=== PATIENT | female | born 1965 | race Caucasian/White ===

== ENCOUNTER 2016-12-31 11:11 | Emergency (ER) | payer MEDICARE ==
--- NOTE | 2016-12-31 11:29 | ER Document Report ---
ED General - General Stated Complaint: RIGHT SIDE PAIN TRAVEL OUTSIDE OF THE [place] IN LAST 30 DAYS: No - Related Data Allergies/Adverse Reactions: No Known Allergies Allergy (Verified 12/08/15 11:32) Past Medical History - Social History Family History: None Endocrine Medical History: Reports: Hx Diabetes Mellitus Type 2 Psychiatric Medical History: Reports: Hx Anxiety, Hx Attention Deficit Hyperactivity Disorder, Hx Bipolar Disorder Past Surgical History: Reports: Hx Breast Surgery - benign lumpectomy, Hx Section - x3, Hx Hysterectomy - Immunizations Hx Diphtheria, Pertussis, Tetanus Vaccination: Yes Hx Pneumococcal Vaccination: 07/08/00
[2016-12-31 13:38] LABS: ALANINE AMINOTRANSFERASE 25 U/L (9-52); ALBUMIN 3.9 g/dL (3.5-5.0); ALKALINE PHOSPHATASE 78 U/L (38-126); ANION GAP 9 (5-19); ASPARTATE AMINO TRANSFERASE 14 U/L (14-36); BILIRUBIN,DIRECT 0.4 mg/dL (0.0-0.4); BILIRUBIN,TOTAL 0.4 mg/dL (0.2-1.3); BLOOD UREA NITROGEN 9 mg/dL (7-20); CALCIUM 9.2 mg/dL (8.4-10.2); CARBON DIOXIDE 22 mmol/L (22-30); CHLORIDE 111 mmol/L (98-107); CREATININE RESULT 0.74 mg/dL (0.52-1.25); GLUCOSE 110 mg/dL (75-110); POTASSIUM 4.6 mmol/L (3.6-5.0); SODIUM 142.2 mmol/L (137-145); TOTAL PROTEIN 7.6 g/dL (6.3-8.2)
--- NOTE | 2016-12-31 13:41 | RADIOLOGY REPORT (SQ) ---
EXAM DESCRIPTION: CERV SP 4 OR 5 VIEWS COMPLETED DATE/TIME: 12/31/2016 1:21 pm REASON FOR STUDY: numbness and pain to both hands COMPARISON: None. NUMBER OF VIEWS: Five views. TECHNIQUE: AP, lateral, obliques and odontoid radiographic images acquired of the cervical spine. LIMITATIONS: None. FINDINGS: MINERALIZATION: Normal. ALIGNMENT: There is very mild straightening of the normal cervical lordosis. VERTEBRAE: Vertebral bodies of normal height. DISCS: There is disc space narrowing at C6-C7 and C7-T1. FORAMINA: No osteophytes or foraminal narrowing. LATERAL AND POSTERIOR ELEMENTS: Facets, lateral masses and spinous processes without significant find ings. HARDWARE: None in the spine. SOFT TISSUES: No masses or calcifications. Lung apices clear. OTHER: No other significant finding. IMPRESSION: Mild degenerative changes in the lower cervical spine. No acute findings. TECHNICAL DOCUMENTATION: JOB ID: [id number] [employer]- All Rights Reserved
[2016-12-31] MEDS ORDERED: KETOROLAC TROMETHAMINE 60 MG/2 ML SDV IM ONE (14:06)
[2016-12-31] MEDS ORDERED: DEXAMETHASONE SOD PHOS INJ 10 MG/1 ML VIAL IM ONE (14:06)
--- NOTE | 2016-12-31 14:17 | ER Document Report ---
ED General - General Chief Complaint: Hand Pain Stated Complaint: RIGHT SIDE PAIN Time Seen by Provider: 12/31/16 11:51 Mode of Arrival: Ambulatory Information source: Patient Notes: 51-year-old female presents to ED for pain and numbness in both hands with the pain radiating up to the arm on the right side. Patient denies any injuries denies any other discomfort. She states it has been going on getting progressively worse for the last week. TRAVEL OUTSIDE OF THE [place] IN LAST 30 DAYS: No - HPI Onset: Last week Onset/Duration: Gradual, Worse Quality of pain: Burning, Sharp, Throbbing Severity: Moderate Pain Level: 4 Associated symptoms: None Exacerbated by: Movement Relieved by: Denies Similar symptoms previously: No Recently seen / treated by doctor: No - Related Data Allergies/Adverse Reactions: No Known Allergies Allergy (Verified 12/31/16 11:24) Past Medical History - General Information source: Patient - Social History Smoking Status: Current Every Day Smoker Cigarette use (# per day): Yes - ppd Chew tobacco use (# tins/day): No Smoking Education Provided: Yes - Less than 2 minutes Frequency of alcohol use: None Drug Abuse: None Lives with: Family Family History: Arthritis, CAD, COPD, CVA, DM, Hyperlipidemia, Hypertension, Malignancy Patient has suicidal ideation: No Patient has homicidal ideation: No - Past Medical History Cardiac Medical History: Reports: Hx Hypertension Pulmonary Medical History: Reports: None EENT Medical History: Reports: None Neurological Medical History: Reports: None Endocrine Medical History: Reports: Hx Diabetes Mellitus Type 2 - When overweight Renal/ Medical History: Reports: None Malignancy Medical History: Reports: None GI Medical History: Reports: None Musculoskeltal Medical History: Reports None Psychiatric Medical History: Reports: Hx Anxiety, Hx Attention Deficit Hyperactivity Disorder, Hx Bipolar Disorder Traumatic Medical History: Reports: Hx Traumatic Brain Injury Infectious Medical History: Reports: None Past Surgical History: Reports: Hx Breast Surgery - benign lumpectomy, Hx Section - x3, Hx Hysterectomy - Immunizations Hx Diphtheria, Pertussis, Tetanus Vaccination: Yes Hx Pneumococcal Vaccination: 07/08/00 Physical Exam - Vital signs Vitals: Temp Pulse Resp BP Pulse Ox 97.9 F 98 20 128/75 H 96 12/31/16 11:25 12/31/16 11:25 12/31/16 11:25 12/31/16 11:25 12/31/16 11:25 Interpretation: Normal - General General appearance: Appears well, Alert - HEENT Head: Normocephalic, Atraumatic Eyes: Normal Pupils: PERRL - Respiratory Respiratory status: No respiratory distress Chest status: Nontender Breath sounds: Normal Chest palpation: Normal - Cardiovascular Rhythm: Regular Heart sounds: Normal auscultation Murmur: No - Abdominal Inspection: Normal Distension: No distension Bowel sounds: Normal Tenderness: Nontender Organomegaly: No organomegaly - Back Back: Normal, Nontender - Extremities General upper extremity: Normal inspection, Normal color, Normal temperature General lower extremity: Normal inspection, Nontender, Normal color, Normal ROM , Normal temperature, Normal weight bearing. No: Annel's sign Wrist: No: Tender, Axial load of thumb pain, Deformity, Dislocation, Ecchymosis , Instability, Laceration, Limited ROM, Navicular tenderness Hand: Tender, No evidence of human bite, No evidence of FB. No: Abrasion, Deformity, Dislocation, Ecchymosis, Instability, Laceration, Nail injury, Swelling - Neurological Neuro grossly intact: Yes Cognition: Normal Orientation: AAOx4 Rogelio Coma Scale Eye Opening: Spontaneous Arbuckle Coma Scale Verbal: Oriented Rogelio Coma Scale Motor: Obeys Commands Arbuckle Coma Scale Total: 15 Speech: Normal Motor strength normal: LUE, RUE, LLE, RLE Sensory: Normal - Psychological Associated symptoms: Normal affect, Normal mood - Skin Skin Temperature: Warm Skin Moisture: Dry Skin Color: Normal Course - Re-evaluation Re-evalutation: 12/31/16 14:29 12/31/16 14:22 X-rays and labs discussed with Dr. Putnam patient will be discharged home after she received an injection of Toradol and Decadron for her pain to bilateral hands. She is to follow-up with her primary doctor concerning her degenerative disc disease in the lower cervical spine. - Vital Signs Vital signs: Temp Pulse Resp BP Pulse Ox 98 F 95 18 130/80 H 98 12/31/16 15:06 12/31/16 15:06 12/31/16 15:06 12/31/16 15:06 12/31/16 15:06 - Laboratory Result Diagrams: 12/31/16 12:45 Laboratory results interpreted by me: 12/31/16 12:45 Chloride 111 H - Diagnostic Test Radiology reviewed: Image reviewed, Reports reviewed Discharge - Discharge Clinical Impression: Bilateral hand pain, Degenerative disc disease, cervical Condition: Stable Disposition: HOME, SELF-CARE Instructions: Family Physicians / Practices Additional Instructions: You have been seen today for pain in both hands shooting up her arm on the right side. You have denied any injury to your hand or arm. Your x-ray of your neck showed you have some degenerative rating disc in your cervical spine which would cause pain and numbness in her hands. A written copy of your x-ray provided to you to follow-up I have given you some steroids and Toradol in your muscle to help with this discomfort. You will need to follow-up with her primary doctor so they can continue to evaluate what other treatment she will need for this pain. When you have degenerating disc in your neck sometimes they will cause inflammation to the nerves causing pain down the arms and hands. Toradol Injection You have been given an injection of ketorolac tromethamine (Toradol). This is an excellent, safe drug for pain control. It also has potent antiinflammatory action. You should have significant pain relief within about one hour. Toradol is not addicting and is non-sedating. It does not interfere with driving or work. Call or return if you develop itching, hives, shortness of breath, or rash. STEROID MEDICATION: You have been given an injection of medicine of the cortisone/steroid class. This medication is used to control inflammation or allergy. It is often continued as a pill for a short period of time, until the acute process subsides. There are usually no side effects from short-term use of cortisone-like medications. Some persons feel an increased sense of well-being and are not sleepy at bedtime. Long-term use of cortisone medications is best avoided, unless required for a severe condition. If your condition does not remit, or relapses after the course of corticosteroid medication, you should consult your physician. FOLLOW-UP CARE: If you have been referred to a physician for follow-up care, call the physician s office for an appointment as you were instructed or within the next two days. If you experience worsening or a significant change in your symptoms, notify the physician immediately or return to the Emergency Department at any time for re-evaluation. Forms: Elevated Blood Pressure, Smoking Cessation Education
[2016-12-31 15:09] VITALS: BP 130/80
== END 2016-12-31 15:06 | disposition home or self-care (01) ==
LOC: ER 11:11
DX: M79.641 Pain in right hand (principal); M79.642 Pain in left hand; M50.323 Other cervical disc degeneration at C6-C7 level; R20.0 Anesthesia of skin; E11.9 Type 2 diabetes mellitus without complications; I10 Essential (primary) hypertension; F17.210 Nicotine dependence, cigarettes, uncomplicated; Z71.6 Tobacco abuse counseling
CPT/HCPCS: 99283; 96372; 36415; 84703; 80053; 72050; J1885; J1100

== ENCOUNTER 2017-07-27 08:15 | Emergency (ER) | payer MEDICARE, MEDICAID ==
--- NOTE | 2017-07-27 09:54 | ER Document Report ---
ED General - General Chief Complaint: Other Stated Complaint: "I THINK I HAVE PARASITES" Time Seen by Provider: 07/27/17 09:06 Mode of Arrival: Ambulatory Information source: Patient Notes: Patient presents emergency department with complaints that she thinks she has parasites. Patient reports her hands have hurt her for over a year. Recently she noticed worms coming out of her hands. She also reports hair loss for the past month. Patient takes off her cap, several circular bald are noted. Pt reports she had surgery where these places are. Patient denies SI/hi but reports that a sore on the back of her neck has been talking to her and when she puts her finger up to it it actually sucks her finger. Patient also reports she has noticed worms coming out of her hands. Patient has a video on her phone of this. Patient reports she had a very large swollen soft spot on her hand that when she pushed on it the worm came out. She reports fever vomiting diarrhea. She denies rectal itching. Denies parasites in her stool. Patient reports history of ADHD bipolar. Reports she has been taking Xanax Ritalin and Topamax for the past year. Denies recreational drug use. TRAVEL OUTSIDE OF THE [place] 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 Lives with: Family Family History: Arthritis, CAD, COPD, CVA, DM, Hyperlipidemia, Hypertension, Malignancy - Past Medical History Cardiac Medical History: Reports: Hx Hypertension Endocrine Medical History: Reports: Hx Diabetes Mellitus Type 2 - When overweight Renal/ Medical History: Denies: Hx Peritoneal Dialysis Psychiatric Medical History: Reports: Hx Anxiety, Hx Attention Deficit Hyperactivity Disorder, Hx Bipolar Disorder Traumatic Medical History: Reports: Hx Traumatic Brain Injury Past Surgical History: Reports: Hx Breast Surgery - benign lumpectomy, Hx Section - x3, Hx Hysterectomy - Immunizations Hx Diphtheria, Pertussis, Tetanus Vaccination: Yes Hx Pneumococcal Vaccination: 07/08/00 Review of Systems - Review of Systems Notes: Review HPI for review of systems., All other systems negative Physical Exam - Vital signs Vitals: Temp Pulse Resp BP Pulse Ox 97.8 F 106 H 16 140/77 H 98 07/27/17 08:20 07/27/17 08:20 07/27/17 08:20 07/27/17 08:20 07/27/17 08:20 - Notes Notes: PHYSICAL EXAMINATION: GENERAL: Well-appearing and in no acute distress nontoxic, calm HEAD: Atraumatic, normocephalic. EYES: Pupils equal round, extraocular movements intact, sclera anicteric, conjunctiva are normal. ENT: nares patent, oropharynx clear without exudates. Moist mucous membranes. NECK: Normal range of motion, supple without lymphadenopathy LUNGS: CTAB and equal. No wheezes rales or rhonchi. HEART: Regular rate and rhythm without murmurs ABDOMEN: Soft, no tenderness. No guarding, no rebound EXTREMITIES: Normal range of motion, no pitting edema. No cyanosis. NEUROLOGICAL: Cranial nerves grossly intact. Normal sensory/motor exams. PSYCH: Normal mood, normal affect. SKIN: Warm, Dry, normal turgor, no rashes or lesions noted, no worms noted, several circular bald spots noted to top of head , Course - Re-evaluation Re-evalutation: 07/27/17 10:54 NIKKO, from [facility] in to see patient. Agrees with delusions, not dangerous to self or others. will check with dr peng for medication change 07/27/17 10:59 no medication change recommended at this time. I considered tinea capitis but patient reports she has had surgery where the bald spots on her head are. she reports the bald spots are not new. We discussed Selsum Blue shampoo. Also will give a consult to [employer] insurance account manager to make sure patient follows up. I'm concerned with treating her with oral antifungals until definitive dx. Pt will be instructed to fu with pcp and derm. In the meantime utilized selsum blue shampoo. - Vital Signs Vital signs: Temp Pulse Resp BP Pulse Ox 97.7 F 95 16 133/77 H 99 07/27/17 12:12 07/27/17 12:12 07/27/17 12:12 07/27/17 12:12 07/27/17 12:12 Discharge - Discharge Clinical Impression: Tinea capitis, Hallucinations Condition: Stable Disposition: HOME, SELF-CARE Instructions: Family Physicians / Practices Additional Instructions: *You have been treated for concerns of parasites, hair loss *Monitor your skin for signs of infection such as increasing pain, redness, swelling, warmth *Wash your hair with selsum blue *Follow up with a primary care provider within one week Follow-up with dermatology *Follow up with mental health on Saturday July 29, 2017 *Return to ED for signs of infection, worsening condition, changes, needs Monitor your blood pressure. Your blood pressure was elevated today. This may be because you were anxious, in pain or because you need medication. It is important to follow up with your primary care provider for full evaluation. Forms: Elevated Blood Pressure Referrals: MAYKEL MCCONNELL DO [ACTIVE STAFF] - Follow up in 1 week
[2017-07-27 12:14] VITALS: BP 133/77
== END 2017-07-27 12:13 | disposition home or self-care (01) ==
LOC: ER 08:15
DX: B35.0 Tinea barbae and tinea capitis (principal); R44.3 Hallucinations, unspecified; M79.641 Pain in right hand; M79.642 Pain in left hand; L65.9 Nonscarring hair loss, unspecified; M79.89 Other specified soft tissue disorders; F90.9 Attention-deficit hyperactivity disorder, unspecified type; F31.9 Bipolar disorder, unspecified; Z79.899 Other long term (current) drug therapy
CPT/HCPCS: 99285

== ENCOUNTER 2018-11-17 18:42 | Inpatient (IN) | payer MEDICARE, MEDICAID ==
[2018-11-17] MEDS ORDERED: NORMAL SALINE 1000 ML 1,000 ML IV ONE ×2 (18:55→19:15)
[2018-11-17 19:01] LABS: VENOUS BLOOD BASE EXCESS 5.4 mmol/L; VENOUS BLOOD PCO2 48.9 mmHg (35-63); VENOUS BLOOD PH 7.42 (7.30-7.42)
[2018-11-17 19:04] LABS: ABSOLUTE EOSINOPHILS # (AUTO) 0.1 10^3/uL (0.0-0.6); ABSOLUTE MONOCYTES (AUTO) 0.3 10^3/uL (0.1-1.4); BASOPHILS % (AUTO) 1.4 % (0-2); EOSINOPHILS % (AUTO) 1.6 % (0-6); HEMATOCRIT 37.6 % (36.0-47.0); HEMOGLOBIN 12.9 g/dL (12.0-15.5); LYMPHOCYTES % (AUTO) 28.8 % (13-45); MEAN CORPUSCULAR HEMOGLOBIN 30.4 pg (27.0-33.4); MEAN CORPUSCULAR HGB CONC 34.3 g/dL (32.0-36.0); MEAN CORPUSCULAR VOLUME 89 fl (80-97); MONOCYTES % (AUTO) 9.6 % (3-13); PLATELET COUNT 223 10^3/uL (150-450); RED BLOOD COUNT 4.25 10^6/uL (3.72-5.28); RED CELL DISTRIBUTION WIDTH 13.5 % (11.5-14.0); SEGMENTED NEUTROPHILS % (AUTO) 58.6 % (42-78); TOTAL CELLS COUNTED % (AUTO) 100 %; WHITE BLOOD COUNT 3.4 10^3/uL (4.0-10.5)
[2018-11-17 19:07] LABS: APPEARANCE,URINE CLEAR; BILIRUBIN,URINE NEGATIVE (NEGATIVE); COLOR,URINE COLORLESS; GLUCOSE, URINE >=500 mg/dL (NEGATIVE); KETONES,URINE NEGATIVE (NEGATIVE); LEUKOCYTE ESTERASE,URINE NEGATIVE (NEGATIVE); NITRITE,URINE NEGATIVE (NEGATIVE); PROTEIN,URINE NEGATIVE (NEGATIVE); URINE SPECIFIC GRAVITY 1.026; UROBILINOGEN,URINE NEGATIVE mg/dL (<2.0)
[2018-11-17 19:13] LABS: ALANINE AMINOTRANSFERASE 35 U/L (9-52); ALBUMIN 3.5 g/dL (3.5-5.0); ALKALINE PHOSPHATASE 165 U/L (38-126); ANION GAP 12 (5-19); ASPARTATE AMINO TRANSFERASE 20 U/L (14-36); BILIRUBIN,DIRECT 0.3 mg/dL (0.0-0.4); BILIRUBIN,TOTAL 0.3 mg/dL (0.2-1.3); BLOOD UREA NITROGEN 6 mg/dL (7-20); CALCIUM 9.2 mg/dL (8.4-10.2); CARBON DIOXIDE 25 mmol/L (22-30); CHLORIDE 88 mmol/L (98-107); SODIUM 125.1 mmol/L (137-145); TOTAL PROTEIN 6.5 g/dL (6.3-8.2)
--- NOTE | 2018-11-17 19:21 | ER Document Report ---
ED Blood Sugar Problem - General Chief Complaint: High Blood Sugar Stated Complaint: BLOOD SUGAR ISSUE Time Seen by Provider: 11/17/18 18:55 TRAVEL OUTSIDE OF THE [place] IN LAST 30 DAYS: No - HPI Notes: Patient is a 53-year-old female that presents to the emergency department for chief complaint of hyperglycemia, dizziness and not feeling well. Patient states she has a history of diabetes and used to take metformin a few years ago. She states that she has not seen a doctor and did not have money to fill her prescription so she stopped taking them. She states over the last week she has progressively felt more dizzy and nauseated. She reports one episode of emesis. She denies any cough, congestion, chest pain, shortness of breath, fever/chills, abdominal pain, diarrhea, numbness and weakness. She states she feels lightheaded and dizzy and has a yeast infection. She does report urinary frequency but denies dysuria. Past Medical History: Diabetes, hypertension Past Surgical History: Hysterectomy Social History: Daily tobacco. Denies drug and alcohol use Family History: Reviewed and noncontributory for presenting illness Allergies: Reviewed, see documented allergy list. REVIEW OF SYSTEMS: CONSTITUTIONAL : No fever No chills No diaphoresis No recent illness EENT: No vision changes No congestion No sore throat CARDIOVASCULAR: No chest pain No palpitations RESPIRATORY: No shortness of breath No cough No difficulty breathing GASTROINTESTINAL: No abdominal pain nausea vomiting No diarrhea GENITOURINARY: No dysuria No hematuria No difficulty urinating Vaginal yeast infection MUSCULOSKELETAL: No back pain No leg pain No arm pain SKIN: No rashes No lesions LYMPHATIC: No swollen, enlarged glands. NEUROLOGICAL: lightheadedness No headache No weakness No paresthesias PSYCHIATRIC: No anxiety No depression PHYSICAL EXAMINATION: Vital signs reviewed, nursing noted reviewed. GENERAL: Ill-appearing, well-nourished and in no acute distress. HEAD: Atraumatic, normocephalic. EYES: Eyes appear normal, extraocular movements intact, sclera anicteric, conjunctiva are normal. ENT: nares patent, oropharynx clear without exudates. Dry mucous membranes. NECK: Normal range of motion, supple without lymphadenopathy LUNGS: Tachypneic without retractions or accessory muscle use. Breath sounds clear to auscultation bilaterally and equal. No wheezes rales or rhonchi. HEART: Regular rate and regular rhythm without murmurs ABDOMEN: Soft, nontender, normoactive bowel sounds. No rebound, guarding, or rigidity. No masses appreciated. EXTREMITIES: Nontender, good range of motion, no pitting or edema. NEUROLOGICAL: No focal neurological deficits. Moves all extremities spontaneously Motor and sensory grossly intact on exam. PSYCH: Normal mood, normal affect. SKIN: Warm, Dry, normal turgor, no rashes or lesions noted on exposed skin - Related Data Allergies/Adverse Reactions: No Known Allergies Allergy (Verified 05/12/17 14:52) Past Medical History - Social History Smoking Status: Unknown if Ever Smoked Family History: Arthritis, CAD, COPD, CVA, DM, Hyperlipidemia, Hypertension, Malignancy Patient has suicidal ideation: No Patient has homicidal ideation: No - Past Medical History Cardiac Medical History: Reports: Hx Hypertension Endocrine Medical History: Reports: Hx Diabetes Mellitus Type 2 - When overweight Renal/ Medical History: Denies: Hx Peritoneal Dialysis Psychiatric Medical History: Reports: Hx Anxiety, Hx Attention Deficit Hyperactivity Disorder, Hx Bipolar Disorder Traumatic Medical History: Reports: Hx Traumatic Brain Injury Past Surgical History: Reports: Hx Breast Surgery - benign lumpectomy, Hx Section - x3, Hx Hysterectomy - Immunizations Hx Diphtheria, Pertussis, Tetanus Vaccination: Yes Hx Pneumococcal Vaccination: 07/08/00 Physical Exam - Vital signs Vitals: Resp Pulse Ox 29 H 100 11/17/18 18:47 11/17/18 18:47 Course - Re-evaluation Re-evalutation: 11/17/18 19:20 Vitals reviewed. Nursing notes reviewed. Patient has very dry mucous membranes and [id number] glucose was reading "high". Patient received 500 mL's normal saline by EMS prior to arrival. Patient ordered 2 L normal saline fluid bolus. 11/17/18 21:15 Patient's lab work showed initial high blood sugar of 795. After 2500 mL normal saline her glucose decreased to 469. She has no acidosis and is not in DKA. Patient's hyperglycemia is concerning for HHNK. She does have pseudohyponatremia because of her hyperglycemia. The remainder of her blood work is unremarkable. There is no urinary tract infection. CT brain is unr emarkable. Urine tox and alcohol levels are negative. Patient is improving with IV fluids. I discussed her care with Dr. Turpin who would like serum osmoles resulted prior to excepting admission. Currently awaiting the results of this test. Laboratory 11/17/18 11/17/18 11/17/18 18:47 18:47 18:47 WBC 3.4 L RBC 4.25 Hgb 12.9 Hct 37.6 MCV 89 MCH 30.4 MCHC 34.3 RDW 13.5 Plt Count 223 Seg Neutrophils % 58.6 Lymphocytes % 28.8 Monocytes % 9.6 Eosinophils % 1.6 Basophils % 1.4 Absolute Neutrophils 2.0 Absolute Lymphocytes 1.0 Absolute Monocytes 0.3 Absolute Eosinophils 0.1 Absolute Basophils 0.0 VBG pH VBG pCO2 VBG HCO3 VBG Base Excess Sodium 125.1 L Potassium 4.0 Chloride 88 L Carbon Dioxide 25 Anion Gap 12 BUN 6 L Creatinine 0.47 L Est GFR ( Amer) > 60 Est GFR (Non-Af Amer) > 60 Glucose 795 H* POC Glucose Calcium 9.2 Total Bilirubin 0.3 Direct Bilirubin 0.3 Neonat Total Bilirubin Not Reportable Neonat Direct Bilirubin Not Reportable Neonat Indirect Bili Not Reportable AST 20 ALT 35 Alkaline Phosphatase 165 H Ammonia Troponin I Total Protein 6.5 Albumin 3.5 Lipase Urine Color COLORLESS Urine Appearance CLEAR Urine pH 7.0 Ur Specific [place] 1.026 Urine Protein NEGATIVE Urine Glucose (UA) >=500 H Urine Ketones NEGATIVE Urine Blood NEGATIVE Urine Nitrite NEGATIVE Urine Bilirubin NEGATIVE Urine Urobilinogen NEGATIVE Ur Leukocyte Esterase NEGATIVE Urine WBC (Auto) 0 Urine RBC (Auto) 1 U Hyaline Cast (Auto) Urine Bacteria (Auto) Urine Red Cell Clumps Urine WBC Clumps Squamous Epi Cells Auto U Non-Squamous Epis Auto Calcium Carbonate Cryst Calcium Phosphate Cryst Calcium Oxalate Cr Auto Leucine Crystals Cystine Crystals Uric Acid Cryst (Auto) Triple Phos Cryst (Auto) Tyrosine Crystals Amorphous Sediment Auto Cellular Casts Epithelial Casts (Auto) Fatty Casts Granular Casts (Auto) Waxy Casts (Auto) Broad Casts RBC Casts (Auto) WBC Casts (Auto) Urine Mucus (Auto) U Trichomonas (Auto) Ur Yeast w Hyphae Urine Yeast (Budding) Urine Ascorbic Acid NEGATIVE Urine HCG, Qual Urine Opiates Screen Urine Methadone Screen Ur Barbiturates Screen Ur Phencyclidine Scrn Ur Amphetamines Screen U Benzodiazepines Scrn Urine Cocaine Screen U Marijuana (THC) Screen Serum Alcohol 05/13/19 05/13/19 05/13/19 18:47 18:47 18:47 WBC RBC Hgb Hct MCV MCH MCHC RDW Plt Count Seg Neutrophils % Lymphocytes % Monocytes % Eosinophils % Basophils % Absolute Neutrophils Absolute Lymphocytes Absolute Monocytes Absolute Eosinophils Absolute Basophils VBG pH 7.42 VBG pCO2 48.9 VBG HCO3 31.0 VBG Base Excess 5.4 Sodium Potassium Chloride Carbon Dioxide Anion Gap BUN Creatinine Est GFR ( Amer) Est GFR (Non-Af Amer) Glucose POC Glucose Calcium Total Bilirubin Direct Bilirubin Neonat Total Bilirubin Neonat Direct Bilirubin Neonat Indirect Bili AST ALT Alkaline Phosphatase Ammonia Troponin I < 0.012 Total Protein Albumin Lipase Urine Color Cancelled Urine Appearance Cancelled Urine pH Cancelled Ur Specific [place] Cancelled Urine Protein Cancelled Urine Glucose (UA) Cancelled Urine Ketones Cancelled Urine Blood Cancelled Urine Nitrite Cancelled Urine Bilirubin Cancelled Urine Urobilinogen Cancelled Ur Leukocyte Esterase Cancelled Urine WBC (Auto) Cancelled Urine RBC (Auto) Cancelled U Hyaline Cast (Auto) Cancelled Urine Bacteria (Auto) Cancelled Urine Red Cell Clumps Cancelled Urine WBC Clumps Cancelled Squamous Epi Cells Auto Cancelled U Non-Squamous Epis Auto Cancelled Calcium Carbonate Cryst Cancelled Calcium Phosphate Cryst Cancelled Calcium Oxalate Cr Auto Cancelled Leucine Crystals Cancelled Cystine Crystals Cancelled Uric Acid Cryst (Auto) Cancelled Triple Phos Cryst (Auto) Cancelled Tyrosine Crystals Cancelled Amorphous Sediment Auto Cancelled Cellular Casts Cancelled Epithelial Casts (Auto) Cancelled Fatty Casts Cancelled Granular Casts (Auto) Cancelled Waxy Casts (Auto) Cancelled Broad Casts Cancelled RBC Casts (Auto) Cancelled WBC Casts (Auto) Cancelled Urine Mucus (Auto) Cancelled U Trichomonas (Auto) Cancelled Ur Yeast w Hyphae Cancelled Urine Yeast (Budding) Cancelled Urine Ascorbic Acid Cancelled Urine HCG, Qual NEGATIVE Urine Opiates Screen Urine Methadone Screen Ur Barbiturates Screen Ur Phencyclidine Scrn Ur Amphetamines Screen U Benzodiazepines Scrn Urine Cocaine Screen U Marijuana (THC) Screen Serum Alcohol 11/17/18 11/17/18 11/17/18 18:47 18:47 19:35 WBC RBC Hgb Hct MCV MCH MCHC RDW Plt Count Seg Neutrophils % Lymphocytes % Monocytes % Eosinophils % Basophils % Absolute Neutrophils Absolute Lymphocytes Absolute Monocytes Absolute Eosinophils Absolute Basophils VBG pH VBG pCO2 VBG HCO3 VBG Base Excess Sodium Potassium Chloride Carbon Dioxide Anion Gap BUN Creatinine Est GFR ( Amer) Est GFR (Non-Af Amer) Glucose POC Glucose Calcium Total Bilirubin Direct Bilirubin Neonat Total Bilirubin Neonat Direct Bilirubin Neonat Indirect Bili AST ALT Alkaline Phosphatase Ammonia < 8.7 L Troponin I Total Protein Albumin Lipase 188.0 Urine Color Urine Appearance Urine pH Ur Specific [place] Urine Protein Urine Glucose (UA) Urine Ketones Urine Blood Urine Nitrite Urine Bilirubin Urine Urobilinogen Ur Leukocyte Esterase Urine WBC (Auto) Urine RBC (Auto) U Hyaline Cast (Auto) Urine Bacteria (Auto) Urine Red Cell Clumps Urine WBC Clumps Squamous Epi Cells Auto U Non-Squamous Epis Auto Calcium Carbonate Cryst Calcium Phosphate Cryst Calcium Oxalate Cr Auto Leucine Crystals Cystine Crystals Uric Acid Cryst (Auto) Triple Phos Cryst (Auto) Tyrosine Crystals Amorphous Sediment Auto Cellular Casts Epithelial Casts (Auto) Fatty Casts Granular Casts (Auto) Waxy Casts (Auto) Broad Casts RBC Casts (Auto) WBC Casts (Auto) Urine Mucus (Auto) U Trichomonas (Auto) Ur Yeast w Hyphae Urine Yeast (Budding) Urine Ascorbic Acid Urine HCG, Qual Urine Opiates Screen NEGATIVE Urine Methadone Screen NEGATIVE Ur Barbiturates Screen NEGATIVE Ur Phencyclidine Scrn NEGATIVE Ur Amphetamines Screen NEGATIVE U Benzodiazepines Scrn NEGATIVE Urine Cocaine Screen NEGATIVE U Marijuana (THC) Screen NEGATIVE Serum Alcohol < 10 11/17/18 20:58 WBC RBC Hgb Hct MCV MCH MCHC RDW Plt Count Seg Neutrophils % Lymphocytes % Monocytes % Eosinophils % Basophils % Absolute Neutrophils Absolute Lymphocytes Absolute Monocytes Absolute Eosinophils Absolute Basophils VBG pH VBG pCO2 VBG HCO3 VBG Base Excess Sodium Potassium Chloride Carbon Dioxide Anion Gap BUN Creatinine Est GFR ( Amer) Est GFR (Non-Af Amer) Glucose POC Glucose 469 H* Calcium Total Bilirubin Direct Bilirubin Neonat Total Bilirubin Neonat Direct Bilirubin Neonat Indirect Bili AST ALT Alkaline Phosphatase Ammonia Troponin I Total Protein Albumin Lipase Urine Color Urine Appearance Urine pH Ur Specific [place] Urine Protein Urine Glucose (UA) Urine Ketones Urine Blood Urine Nitrite Urine Bilirubin Urine Urobilinogen Ur Leukocyte Esterase Urine WBC (Auto) Urine RBC (Auto) U Hyaline Cast (Auto) Urine Bacteria (Auto) Urine Red Cell Clumps Urine WBC Clumps Squamous Epi Cells Auto U Non-Squamous Epis Auto Calcium Carbonate Cryst Calcium Phosphate Cryst Calcium Oxalate Cr Auto Leucine Crystals Cystine Crystals Uric Acid Cryst (Auto) Triple Phos Cryst (Auto) Tyrosine Crystals Amorphous Sediment Auto Cellular Casts Epithelial Casts (Auto) Fatty Casts Granular Casts (Auto) Waxy Casts (Auto) Broad Casts RBC Casts (Auto) WBC Casts (Auto) Urine Mucus (Auto) U Trichomonas (Auto) Ur Yeast w Hyphae Urine Yeast (Budding) Urine Ascorbic Acid Urine HCG, Qual Urine Opiates Screen Urine Methadone Screen Ur Barbiturates Screen Ur Phencyclidine Scrn Ur Amphetamines Screen U Benzodiazepines Scrn Urine Cocaine Screen U Marijuana (THC) Screen Serum Alcohol 11/17/18 21:55 Patient serum osmole's are elevated. Patient admitted to telemetry for further monitoring. Dr. Turpin accepts admission. - Vital Signs Vital signs: Temp Pulse Resp BP Pulse Ox 98.6 F 13 133/87 H 100 11/17/18 19:01 11/17/18 21:01 11/17/18 21:01 11/17/18 21:01 - Laboratory Result Diagrams: 11/17/18 18:47 11/17/18 18:47 Laboratory results interpreted by me: 11/17/18 11/17/18 11/17/18 18:47 18:47 18:47 WBC 3.4 L Sodium 125.1 L Chloride 88 L BUN 6 L Creatinine 0.47 L Glucose 795 H* POC Glucose Serum Osmolality Alkaline Phosphatase 165 H Ammonia Urine Glucose (UA) >=500 H 11/17/18 11/17/18 11/17/18 18:47 19:35 20:58 WBC Sodium Chloride BUN Creatinine Glucose POC Glucose 469 H* Serum Osmolality 303 H Alkaline Phosphatase Ammonia < 8.7 L Urine Glucose (UA) Discharge - Discharge Clinical Impression: HHNC (hyperglycemic hyperosmolar nonketotic coma) Condition: Stable Disposition: ADMITTED INPATIENT Admitting Provider: Papi (Hospitalist) Unit Admitted: Telemetry
[2018-11-17 19:28] LABS: GLUCOSE 795 mg/dL (75-110)
--- NOTE | 2018-11-17 19:41 | RADIOLOGY REPORT (SQ) ---
EXAM DESCRIPTION: CT HEAD WITHOUT COMPLETED DATE/TIME: 11/17/2018 7:31 pm REASON FOR STUDY: dizziness COMPARISON: 03/06/2012. TECHNIQUE: Axial images acquired through the brain without intravenous contrast. Images reviewed wi th bone, brain and subdural windows. Additional sagittal and coronal reconstructions were generated. Images stored on PACS. All CT scanners at this facility use dose modulation, iterative reconstruction, and/or weight based d osing when appropriate to reduce radiation dose to as low as reasonably achievable (ALARA). [facility]: Dose Right [facility]: CareDose [facility]: Dose Right [facility]: Teradose 4D [facility]: [employer] RADIATION DOSE: CT Rad equipment meets quality standard of care and radiation dose reduction techniq ues were employed. CTDIvol: 53.2 mGy. DLP: 964 mGy-cm. mGy. LIMITATIONS: None. FINDINGS: VENTRICLES: Normal size and contour. CEREBRUM: No masses. No hemorrhage. No midline shift. No evidence for acute infarction. Normal gra y/white matter differentiation. No areas of low density in the white matter. CEREBELLUM: No masses. No hemorrhage. No alteration of density. No evidence for acute infarction. EXTRAAXIAL SPACES: Stable mild asymmetric fluid collection along the right side of the hazel. ORBITS AND GLOBE: No intra- or extraconal masses. Normal contour of globe without masses. CALVARIUM: No fracture. PARANASAL SINUSES: No fluid or mucosal thickening. SOFT TISSUES: No mass or hematoma. OTHER: No other significant finding. IMPRESSION: NORMAL BRAIN CT WITHOUT CONTRAST. EVIDENCE OF ACUTE STROKE: NO. COMMENT: Quality ID # [id number]: Final reports with documentation of one or more dose reduction techniques (e.g., Automated exposure control, adjustment of the mA and/or kV according to patient size, use of iterative reconstruction technique) TECHNICAL DOCUMENTATION: JOB ID: [id number] [facility]- All Rights Reserved Reading location - IP/workstation name: [email or web address]
--- NOTE | 2018-11-17 19:42 | RADIOLOGY REPORT (SQ) ---
EXAM DESCRIPTION: CHEST SINGLE VIEW COMPLETED DATE/TIME: 11/17/2018 7:09 pm REASON FOR STUDY: hyperglycemia COMPARISON: 11/04/2012. EXAM PARAMETERS: NUMBER OF VIEWS: One view. TECHNIQUE: Single frontal radiographic view of the chest acquired. RADIATION DOSE: NA LIMITATIONS: None. FINDINGS: LUNGS AND PLEURA: No opacities, masses or pneumothorax. No pleural effusion. MEDIASTINUM AND HILAR STRUCTURES: No masses. Contour normal. HEART AND VASCULAR STRUCTURES: Heart normal in size. Normal vasculature. BONES: No acute findings. HARDWARE: None in the chest. OTHER: No other significant finding. IMPRESSION: NO ACUTE RADIOGRAPHIC FINDING IN THE CHEST. TECHNICAL DOCUMENTATION: JOB ID: [id number] [employer]- All Rights Reserved Reading location - IP/workstation name: [email or web address]
[2018-11-17 19:47] LABS: ALCOHOL < 10 mg/dL (NONE DETECTED)
[2018-11-17 20:08] LABS: URINE BENZODIAZEPINES SCREEN NEGATIVE; URINE COCAINE SCREEN NEGATIVE
[2018-11-17 20:09] LABS: URINE AMPHETAMINES SCREEN NEGATIVE; URINE BARBITURATES SCREEN NEGATIVE; URINE MARIJUANA (THC) SCREEN NEGATIVE; URINE METHADONE SCREEN NEGATIVE; URINE PHENCYCLIDINE SCREEN NEGATIVE
[2018-11-17] MEDS ORDERED: NORMAL SALINE 1000 ML 1,000 ML IV PRN (21:06)
[2018-11-17] MEDS ORDERED: DEXTROSE 40% GEL 15 GM TUBE PO PRN ×2 (21:32)
[2018-11-17] MEDS ORDERED: MAG HYDROX/AL HYDROX/SIMETH SUSP 30 ML UDCUP PO PRN (21:32)
[2018-11-17] MEDS ORDERED: ACETAMINOPHEN 325 MG TABLET PO PRN (21:32)
[2018-11-17] MEDS ORDERED: GLUCAGON,HUMAN RECOMB 1 MG INJ IM PRN (21:32)
[2018-11-17] MEDS ORDERED: DEXTROSE 50%-WATER 25 GM/50 ML DISP.SYRIN IV PRN ×2 (21:32)
[2018-11-17] MEDS ORDERED: IPRATROPIUM/ALBUTEROL 0.5-2.5 MG/3 ML AMPUL NEB PRN (21:32)
[2018-11-17] MEDS ORDERED: 1/2 NORMAL SALINE 1,000 ML with POTASSIUM CHLORIDE 40 MEQ IV SCH ×2 (21:45)
[2018-11-17] MEDS ORDERED: INSULIN GLARGINE,HUM.REC.ANLOG 1,000 UNIT/10 ML VIAL SUBCUT SCH (22:00)
[2018-11-17] MEDS: HEPARIN SOD (PORCINE) 5,000 UNIT/ML 1 ML SYRINGE SUBCUT SCH (22:54)
[2018-11-17] MEDS: INSULIN LISPRO 100 UNIT/ML 3 ML VIAL SUBCUT SCH (22:55)
[2018-11-18 00:31] LABS: ANION GAP 8 (5-19); BLOOD UREA NITROGEN 4 mg/dL (7-20); CALCIUM 8.2 mg/dL (8.4-10.2); CARBON DIOXIDE 24 mmol/L (22-30); CHLORIDE 101 mmol/L (98-107); GLUCOSE 351 mg/dL (75-110); POTASSIUM 3.1 mmol/L (3.6-5.0); SODIUM 133.3 mmol/L (137-145)
[2018-11-18] MEDS: INSULIN LISPRO 100 UNIT/ML 3 ML VIAL SUBCUT SCH ×4 (01:14→17:40)
[2018-11-18] MEDS: NICOTINE 14 MG/24 HR PATCH.TD24 TD SCH ×2 (01:52→09:57)
--- NOTE | 2018-11-18 04:00 | PDOC H&P ---
History of Present Illness Admission Date/PCP: 11/17/18 21:51 Patient complains of: Hyperglycemia History of Present Illness: DEVYN OBANDO is a 53 year old female with a history of hypertension, diabetes, anxiety and tobacco dependence. Patient presents with polyuria polydipsia fatigue and hyperglycemia. Blood sugars found to be in the 700s. She started on IV fluids and referred to the hospitalist for hyperosmolar nonketotic state. Patient denies headache, blurred vision, nausea vomiting, chemistry is negative for acidosis but positive for hyperosmolar state. Patient admits medication noncompliance for years secondary to financial barriers however admits to a 4 pack/day smoking habit. Past Medical History Cardiac Medical History: Reports: Hypertension Pulmonary Medical History: Reports: Chronic Obstructive Pulmonary Disease (COPD) Endocrine Medical History: Reports: Diabetes Mellitus Type 2 - When overweight Psychiatric Medical History: Reports: Attention Deficit Hyperactivity Disorder, Bipolar Disorder, Tobacco Dependency Traumatic Medical History: Reports: Traumatic Brain Injury Past Surgical History Past Surgical History: Reports: Section - x3, Hysterectomy Social History Information Source: Patient Smoking Status: Current Every Day Smoker Frequency of Alcohol Use: None Drugs: None - Advance Directive Resuscitation Status: Full Code Family History Family History: Arthritis, CAD, COPD, CVA, DM, Hyperlipidemia, Hypertension, Malignancy Parental Family History Reviewed: Yes Children Family History Reviewed: Yes Sibling(s) Family History Reviewed.: Yes Medication/Allergy Home Medications: Alprazolam [Xanax Xr] 2 mg PO BID PRN 07/09/15 Amitriptyline HCl [Elavil 100 mg Tablet] 100 mg PO QHS 07/09/15 Bupropion HCl [Wellbutrin Sr 100 mg Tablet] 1 tab PO Q12 07/09/15 Buspirone HCl [Buspar 10 mg Tablet] 10 mg PO BID 07/09/15 Ciprofloxacin HCl [Cipro 500 mg Tablet] 500 mg PO BID #10 tablet 07/09/15 Topiramate [Topamax 100 Mg Tablet] 200 mg PO BID 07/09/15 Vortioxetine Hydrobromide [Brintellix] 20 mg PO DAILY 07/09/15 Gabapentin 100 mg PO TID #30 capsule 12/08/15 Oxycodone HCl/Acetaminophen [Percocet 5-325 mg Tablet] 1 - 2 tab PO Q4H PRN #15 tablet 12/08/15 Allergies/Adverse Reactions: No Known Allergies Allergy (Verified 05/12/17 14:52) Review of Systems ROS unobtainable: Due to mental status - Confused Physical Exam Vital Signs: Temp Pulse Resp BP Pulse Ox 98.3 F 89 17 131/99 H 95 11/18/18 01:00 11/18/18 01:00 11/18/18 01:00 11/18/18 01:00 11/18/18 01:00 Intake & Output 11/16/18 11/17/18 11/18/18 11:59 11:59 11:59 Intake Total 3000 Output Total 1650 Balance 1350 Weight 75 kg General appearance: PRESENT: cooperative, disheveled, mild distress, well- developed, well-nourished Head exam: PRESENT: atraumatic, normocephalic Eye exam: PRESENT: conjunctiva pink, EOMI, PERRLA. ABSENT: scleral icterus Ear exam: PRESENT: normal external ear exam Mouth exam: PRESENT: dry mucosa, neck supple. ABSENT: laceration, moist Neck exam: ABSENT: carotid bruit, JVD, lymphadenopathy, thyromegaly Respiratory exam: PRESENT: clear to auscultation catrachita, tachypnea. ABSENT: rales, rhonchi, wheezes Cardiovascular exam: PRESENT: RRR, tachycardia. ABSENT: diastolic murmur, rubs, systolic murmur Pulses: PRESENT: normal dorsalis pedis pul Vascular exam: PRESENT: normal capillary refill GI/Abdominal exam: PRESENT: normal bowel sounds, soft. ABSENT: distended, guarding, mass, organolmegaly, rebound, tenderness Rectal exam: PRESENT: deferred Extremities exam: PRESENT: full ROM. ABSENT: calf tenderness, clubbing, pedal edema Neurological exam: PRESENT: alert, altered, awake, oriented to person, oriented to place, CN II-XII grossly intact Psychiatric exam: PRESENT: normal mood, unusual affect. ABSENT: homicidal ideation, suicidal ideation Skin exam: PRESENT: dry, intact, warm. ABSENT: cyanosis, rash Results Laboratory Results: 11/17/18 18:47 11/17/18 23:04 11/17/18 11/17/18 11/17/18 18:47 18:47 18:47 WBC 3.4 L RBC 4.25 Hgb 12.9 Hct 37.6 MCV 89 MCH 30.4 MCHC 34.3 RDW 13.5 Plt Count 223 Seg Neutrophils % 58.6 Lymphocytes % 28.8 Monocytes % 9.6 Eosinophils % 1.6 Basophils % 1.4 Absolute Neutrophils 2.0 Absolute Lymphocytes 1.0 Absolute Monocytes 0.3 Absolute Eosinophils 0.1 Absolute Basophils 0.0 VBG pH VBG pCO2 VBG HCO3 VBG Base Excess Sodium 125.1 L Potassium 4.0 Chloride 88 L Carbon Dioxide 25 Anion Gap 12 BUN 6 L Creatinine 0.47 L Est GFR ( Amer) > 60 Est GFR (Non-Af Amer) > 60 Glucose 795 H* Serum Osmolality Calcium 9.2 Magnesium Total Bilirubin 0.3 AST 20 ALT 35 Alkaline Phosphatase 165 H Ammonia Total Protein 6.5 Albumin 3.5 Lipase Urine Color COLORLESS Urine Appearance CLEAR Urine pH 7.0 Ur Specific Normal 1.026 Urine Protein NEGATIVE Urine Glucose (UA) >=500 H Urine Ketones NEGATIVE Urine Blood NEGATIVE Urine Nitrite NEGATIVE Ur Leukocyte Esterase NEGATIVE Urine WBC (Auto) 0 Urine RBC (Auto) 1 11/17/18 11/17/18 11/17/18 18:47 18:47 18:47 WBC RBC Hgb Hct MCV MCH MCHC RDW Plt Count Seg Neutrophils % Lymphocytes % Monocytes % Eosinophils % Basophils % Absolute Neutrophils Absolute Lymphocytes Absolute Monocytes Absolute Eosinophils Absolute Basophils VBG pH 7.42 VBG pCO2 48.9 VBG HCO3 31.0 VBG Base Excess 5.4 Sodium Potassium Chloride Carbon Dioxide Anion Gap BUN Creatinine Est GFR ( Amer) Est GFR (Non-Af Amer) Glucose Serum Osmolality Calcium Magnesium Total Bilirubin AST ALT Alkaline Phosphatase Ammonia Total Protein Albumin Lipase 188.0 Urine Color Cancelled Urine Appearance Cancelled Urine pH Cancelled Ur Specific Normal Cancelled Urine Protein Cancelled Urine Glucose (UA) Cancelled Urine Ketones Cancelled Urine Blood Cancelled Urine Nitrite Cancelled Ur Leukocyte Esterase Cancelled Urine WBC (Auto) Cancelled Urine RBC (Auto) Cancelled 11/17/18 11/17/18 11/17/18 18:47 18:47 18:47 WBC RBC Hgb Hct MCV MCH MCHC RDW Plt Count Seg Neutrophils % Lymphocytes % Monocytes % Eosinophils % Basophils % Absolute Neutrophils Absolute Lymphocytes Absolute Monocytes Absolute Eosinophils Absolute Basophils VBG pH VBG pCO2 VBG HCO3 VBG Base Excess Sodium Potassium Chloride Carbon Dioxide Anion Gap BUN Creatinine Est GFR ( Amer) Est GFR (Non-Af Amer) Glucose Serum Osmolality Cancelled 303 H Calcium Magnesium 1.5 L Total Bilirubin AST ALT Alkaline Phosphatase Ammonia Total Protein Albumin Lipase Urine Color Urine Appearance Urine pH Ur Specific Normal Urine Protein Urine Glucose (UA) Urine Ketones Urine Blood Urine Nitrite Ur Leukocyte Esterase Urine WBC (Auto) Urine RBC (Auto) 11/17/18 11/17/18 11/17/18 19:35 23:04 23:04 WBC RBC Hgb Hct MCV MCH MCHC RDW Plt Count Seg Neutrophils % Lymphocytes % Monocytes % Eosinophils % Basophils % Absolute Neutrophils Absolute Lymphocytes Absolute Monocytes Absolute Eosinophils Absolute Basophils VBG pH VBG pCO2 VBG HCO3 VBG Base Excess Sodium 133.3 L Potassium 3.1 L Chloride 101 Carbon Dioxide 24 Anion Gap 8 BUN 4 L Creatinine 0.40 L Est GFR ( Amer) > 60 Est GFR (Non-Af Amer) > 60 Glucose 351 H Serum Osmolality 292 Calcium 8.2 L Magnesium Total Bilirubin AST ALT Alkaline Phosphatase Ammonia < 8.7 L Total Protein Albumin Lipase Urine Color Urine Appearance Urine pH Ur Specific Normal Urine Protein Urine Glucose (UA) Urine Ketones Urine Blood Urine Nitrite Ur Leukocyte Esterase Urine WBC (Auto) Urine RBC (Auto) 11/17/18 18:47 Troponin I < 0.012 Impressions: Chest X-Ray 11/17/18 18:56 IMPRESSION: NO ACUTE RADIOGRAPHIC FINDING IN THE CHEST. Head CT 11/17/18 19:17 IMPRESSION: NORMAL BRAIN CT WITHOUT CONTRAST. EVIDENCE OF ACUTE STROKE: NO. Assessment and Plan - Diagnosis (1) HHNC (hyperglycemic hyperosmolar nonketotic coma) Is this a current diagnosis for this admission?: Yes Plan: uncontrolled hyperglycemia with hyperosmolar supporting labs. Patient will receive IV fluids IV insulin serial chemistries every 6 hours for evaluation for electrolyte repletion. Secondary to noncompliance patient will require diabetic education and consideration of mental health evaluation. (2) Diabetes Is this a current diagnosis for this admission?: Yes Plan: patient has had some degree of polyuria polydipsia with nausea and uncontrolled hyperglycemia with supporting labs. Patient will receive IV fluids IV insulin serial chemistries every 12 hours for evaluation for electrolyte repletion. diabetic education and consideration of mental health evaluation. (3) Tobacco abuse Is this a current diagnosis for this admission?: Yes Plan: Tobacco Dependence patient received tobacco cessation counseling and offered nicotine replacement options - Time Time Spent with patient: 35 or more minutes - Inpatient Certification Medical Necessity: Need Close Monitoring Due to Risk of Patient Decompensation
[2018-11-18] MEDS: MAGNESIUM SULFATE/D5W 1 GM/100 ML RTUPB IV SCH ×2 (06:01→07:31)
[2018-11-18] MEDS: HEPARIN SOD (PORCINE) 5,000 UNIT/ML 1 ML SYRINGE SUBCUT SCH ×3 (06:12→21:29)
[2018-11-18 06:42] LABS: ABSOLUTE BASOPHILS # (AUTO) 0.1 10^3/uL (0.0-0.2); ABSOLUTE EOSINOPHILS # (AUTO) 0.1 10^3/uL (0.0-0.6); ABSOLUTE LYMPHOCYTES (AUTO) 1.4 10^3/uL (0.5-4.7); ABSOLUTE MONOCYTES (AUTO) 0.3 10^3/uL (0.1-1.4); ABSOLUTE NEUT (AUTO) 1.6 10^3/uL (1.7-8.2); BASOPHILS % (AUTO) 1.8 % (0-2); EOSINOPHILS % (AUTO) 3.1 % (0-6); HEMATOCRIT 32.6 % (36.0-47.0); HEMOGLOBIN 11.3 g/dL (12.0-15.5); LYMPHOCYTES % (AUTO) 40.1 % (13-45); MEAN CORPUSCULAR HEMOGLOBIN 29.7 pg (27.0-33.4); MEAN CORPUSCULAR HGB CONC 34.8 g/dL (32.0-36.0); MONOCYTES % (AUTO) 8.7 % (3-13); PLATELET COUNT 144 10^3/uL (150-450); RED BLOOD COUNT 3.82 10^6/uL (3.72-5.28); RED CELL DISTRIBUTION WIDTH 13.4 % (11.5-14.0); SEGMENTED NEUTROPHILS % (AUTO) 46.3 % (42-78); TOTAL CELLS COUNTED % (AUTO) 100 %; WHITE BLOOD COUNT 3.4 10^3/uL (4.0-10.5)
[2018-11-18 06:46] LABS: MEAN CORPUSCULAR VOLUME 86 fl (80-97)
--- NOTE | 2018-11-18 07:26 | EKG REPORT ---
SEVERITY:- ABNORMAL ECG - SINUS RHYTHM PROBABLE POSTERIOR INFARCT : Confirmed by: Micah Yee MD 18-Nov-2018 07:25:59
[2018-11-18] MEDS: GABAPENTIN 100 MG CAPSULE PO SCH ×3 (09:56→17:19)
[2018-11-18] MEDS: BUSPIRONE HCL 10 MG TABLET PO SCH ×2 (09:56→17:19)
[2018-11-18] MEDS: POTASSI CL 20 MEQ/50 ML RIDER 20 MEQ/50 ML RTUPB IV SCH ×2 (09:56→12:47)
[2018-11-18] MEDS ORDERED: POTASSI CL 20 MEQ/50 ML RIDER 20 MEQ/50 ML RTUPB IV SCH (13:00)
--- NOTE | 2018-11-18 15:37 | PDOC PROGRESS REPORT ---
Subjective Progress Note for:: 11/18/18 Subjective:: No adverse events overnight. Mental status has improved. Appetite has returned. She is complaining of a yeast infection in her groin. She says she was supposed to be on diabetes medicine years ago but stopped taking it when she lost her insurance. She is not diabetic that she knows of. Reason For Visit: N Physical Exam Vital Signs: Temp Pulse Resp BP Pulse Ox 97.3 F 92 16 146/81 H 98 11/18/18 11:50 11/18/18 12:35 11/18/18 12:35 11/18/18 11:50 11/18/18 12:35 Intake & Output 11/17/18 11/18/18 11/19/18 06:59 06:59 06:59 Intake Total 3360 920 Output Total 1650 1500 Balance 1710 -580 Weight 75 kg General appearance: PRESENT: no acute distress, cooperative, disheveled Mouth exam: PRESENT: dry mucosa, neck supple Teeth exam: PRESENT: edentulous Respiratory exam: PRESENT: clear to auscultation catrachita, symmetrical, unlabored. ABSENT: accessory muscle use, prolonged expiratory phas, rales, rhonchi, tachypnea, wheezes Cardiovascular exam: PRESENT: RRR, +S1, +S2 Pulses: PRESENT: normal carotid pulses Vascular exam: PRESENT: normal capillary refill GI/Abdominal exam: PRESENT: normal bowel sounds, soft. ABSENT: distended, guarding, rebound, tenderness Extremities exam: ABSENT: clubbing, pedal edema Musculoskeletal exam: PRESENT: normal inspection. ABSENT: deformity Neurological exam: PRESENT: alert, awake, oriented to person, oriented to place, oriented to situation Psychiatric exam: PRESENT: appropriate affect, normal mood Skin exam: PRESENT: dry, warm Results Laboratory Results: 11/18/18 05:10 11/17/18 23:04 11/17/18 11/17/18 11/17/18 18:47 18:47 18:47 WBC 3.4 L RBC 4.25 Hgb 12.9 Hct 37.6 MCV 89 MCH 30.4 MCHC 34.3 RDW 13.5 Plt Count 223 Seg Neutrophils % 58.6 Lymphocytes % 28.8 Monocytes % 9.6 Eosinophils % 1.6 Basophils % 1.4 Absolute Neutrophils 2.0 Absolute Lymphocytes 1.0 Absolute Monocytes 0.3 Absolute Eosinophils 0.1 Absolute Basophils 0.0 VBG pH VBG pCO2 VBG HCO3 VBG Base Excess Sodium 125.1 L Potassium 4.0 Chloride 88 L Carbon Dioxide 25 Anion Gap 12 BUN 6 L Creatinine 0.47 L Est GFR ( Amer) > 60 Est GFR (Non-Af Amer) > 60 Glucose 795 H* Serum Osmolality Calcium 9.2 Magnesium Total Bilirubin 0.3 AST 20 ALT 35 Alkaline Phosphatase 165 H Ammonia Total Protein 6.5 Albumin 3.5 Lipase Urine Color COLORLESS Urine Appearance CLEAR Urine pH 7.0 Ur Specific [place] 1.026 Urine Protein NEGATIVE Urine Glucose (UA) >=500 H Urine Ketones NEGATIVE Urine Blood NEGATIVE Urine Nitrite NEGATIVE Ur Leukocyte Esterase NEGATIVE Urine WBC (Auto) 0 Urine RBC (Auto) 1 11/17/18 11/17/18 11/17/18 18:47 18:47 18:47 WBC RBC Hgb Hct MCV MCH MCHC RDW Plt Count Seg Neutrophils % Lymphocytes % Monocytes % Eosinophils % Basophils % Absolute Neutrophils Absolute Lymphocytes Absolute Monocytes Absolute Eosinophils Absolute Basophils VBG pH 7.42 VBG pCO2 48.9 VBG HCO3 31.0 VBG Base Excess 5.4 Sodium Potassium Chloride Carbon Dioxide Anion Gap BUN Creatinine Est GFR ( Amer) Est GFR (Non-Af Amer) Glucose Serum Osmolality Calcium Magnesium Total Bilirubin AST ALT Alkaline Phosphatase Ammonia Total Protein Albumin Lipase 188.0 Urine Color Cancelled Urine Appearance Cancelled Urine pH Cancelled Ur Specific [place] Cancelled Urine Protein Cancelled Urine Glucose (UA) Cancelled Urine Ketones Cancelled Urine Blood Cancelled Urine Nitrite Cancelled Ur Leukocyte Esterase Cancelled Urine WBC (Auto) Cancelled Urine RBC (Auto) Cancelled 11/17/18 11/17/18 11/17/18 18:47 18:47 18:47 WBC RBC Hgb Hct MCV MCH MCHC RDW Plt Count Seg Neutrophils % Lymphocytes % Monocytes % Eosinophils % Basophils % Absolute Neutrophils Absolute Lymphocytes Absolute Monocytes Absolute Eosinophils Absolute Basophils VBG pH VBG pCO2 VBG HCO3 VBG Base Excess Sodium Potassium Chloride Carbon Dioxide Anion Gap BUN Creatinine Est GFR ( Amer) Est GFR (Non-Af Amer) Glucose Serum Osmolality Cancelled 303 H Calcium Magnesium 1.5 L Total Bilirubin AST ALT Alkaline Phosphatase Ammonia Total Protein Albumin Lipase Urine Color Urine Appearance Urine pH Ur Specific [place] Urine Protein Urine Glucose (UA) Urine Ketones Urine Blood Urine Nitrite Ur Leukocyte Esterase Urine WBC (Auto) Urine RBC (Auto) 11/17/18 11/17/18 11/17/18 19:35 23:04 23:04 WBC RBC Hgb Hct MCV MCH MCHC RDW Plt Count Seg Neutrophils % Lymphocytes % Monocytes % Eosinophils % Basophils % Absolute Neutrophils Absolute Lymphocytes Absolute Monocytes Absolute Eosinophils Absolute Basophils VBG pH VBG pCO2 VBG HCO3 VBG Base Excess Sodium 133.3 L Potassium 3.1 L Chloride 101 Carbon Dioxide 24 Anion Gap 8 BUN 4 L Creatinine 0.40 L Est GFR ( Amer) > 60 Est GFR (Non-Af Amer) > 60 Glucose 351 H Serum Osmolality 292 Calcium 8.2 L Magnesium Total Bilirubin AST ALT Alkaline Phosphatase Ammonia < 8.7 L Total Protein Albumin Lipase Urine Color Urine Appearance Urine pH Ur Specific [place] Urine Protein Urine Glucose (UA) Urine Ketones Urine Blood Urine Nitrite Ur Leukocyte Esterase Urine WBC (Auto) Urine RBC (Auto) 11/18/18 05:10 WBC 3.4 L RBC 3.82 Hgb 11.3 L Hct 32.6 L MCV 86 MCH 29.7 MCHC 34.8 RDW 13.4 Plt Count 144 L Seg Neutrophils % 46.3 Lymphocytes % 40.1 Monocytes % 8.7 Eosinophils % 3.1 Basophils % 1.8 Absolute Neutrophils 1.6 L Absolute Lymphocytes 1.4 Absolute Monocytes 0.3 Absolute Eosinophils 0.1 Absolute Basophils 0.1 VBG pH VBG pCO2 VBG HCO3 VBG Base Excess Sodium Potassium Chloride Carbon Dioxide Anion Gap BUN Creatinine Est GFR ( Amer) Est GFR (Non-Af Amer) Glucose Serum Osmolality Calcium Magnesium Total Bilirubin AST ALT Alkaline Phosphatase Ammonia Total Protein Albumin Lipase Urine Color Urine Appearance Urine pH Ur Specific [place] Urine Protein Urine Glucose (UA) Urine Ketones Urine Blood Urine Nitrite Ur Leukocyte Esterase Urine WBC (Auto) Urine RBC (Auto) 11/17/18 18:47 Troponin I < 0.012 Impressions: Chest X-Ray 11/17/18 18:56 IMPRESSION: NO ACUTE RADIOGRAPHIC FINDING IN THE CHEST. Head CT 11/17/18 19:17 IMPRESSION: NORMAL BRAIN CT WITHOUT CONTRAST. EVIDENCE OF ACUTE STROKE: NO. Assessment and Plan - Diagnosis (1) HHNC (hyperglycemic hyperosmolar nonketotic coma) Is this a current diagnosis for this admission?: Yes Plan: Mental status has improved. Blood glucose has improved. Urine output is picking up. Appetite has returned. Yeast infection will be treated with flucon azole, was likely related to the long-term uncontrolled diabetes. We will check a hemoglobin A1c. Increase her Lantus to 20 units at bedtime. - Time Time Spent with patient: 15-24 minutes
[2018-11-18] MEDS ORDERED: INSULIN LISPRO 100 UNIT/ML 3 ML VIAL SUBCUT ONE ×2 (16:15→18:30)
[2018-11-18] MEDS ORDERED: FLUCONAZOLE 100 MG TABLET PO ONE (16:30)
[2018-11-18 19:03] LABS: ANION GAP 8 (5-19); BLOOD UREA NITROGEN 5 mg/dL (7-20); CALCIUM 8.4 mg/dL (8.4-10.2); CARBON DIOXIDE 23 mmol/L (22-30); CHLORIDE 102 mmol/L (98-107); GLUCOSE 355 mg/dL (75-110); POTASSIUM 3.6 mmol/L (3.6-5.0); SODIUM 133.3 mmol/L (137-145)
[2018-11-18] MEDS ORDERED: INSULIN REG, HUMAN 100 UNIT/ML 3 ML VIAL (PYX) IV ONE (21:33)
[2018-11-18] MEDS ORDERED: INSULIN GLARGINE,HUM.REC.ANLOG 1,000 UNIT/10 ML VIAL SUBCUT SCH (22:00)
[2018-11-18 22:54] LABS: ANION GAP 9 (5-19); BLOOD UREA NITROGEN 10 mg/dL (7-20); CALCIUM 9.1 mg/dL (8.4-10.2); CARBON DIOXIDE 25 mmol/L (22-30); CHLORIDE 101 mmol/L (98-107); GLUCOSE 303 mg/dL (75-110); POTASSIUM 4.3 mmol/L (3.6-5.0); SODIUM 134.6 mmol/L (137-145)
[2018-11-19] MEDS: INSULIN LISPRO 100 UNIT/ML 3 ML VIAL SUBCUT SCH ×5 (01:14→22:21)
[2018-11-19] MEDS: HEPARIN SOD (PORCINE) 5,000 UNIT/ML 1 ML SYRINGE SUBCUT SCH ×3 (06:34→22:20)
[2018-11-19] MEDS: GABAPENTIN 100 MG CAPSULE PO SCH ×3 (09:00→17:20)
[2018-11-19] MEDS: NICOTINE 14 MG/24 HR PATCH.TD24 TD SCH (09:00)
[2018-11-19] MEDS: BUSPIRONE HCL 10 MG TABLET PO SCH ×2 (09:00→17:20)
[2018-11-19] MEDS ORDERED: INSULIN LISPRO 100 UNIT/ML 3 ML VIAL SUBCUT ONE (12:30)
[2018-11-19] MEDS: METFORMIN HCL 500 MG TABLET PO SCH (15:32)
--- NOTE | 2018-11-19 16:31 | PDOC PROGRESS REPORT ---
Subjective Progress Note for:: 11/19/18 Subjective:: No adverse events overnight. No new complaints. Vital signs been stable. Despite increase in her Lantus last night, her blood sugars are still substantially elevated, in the 300s, mostly towards the upper end of the 300s. Her only complaint is that she is hungry. Reason For Visit: N Physical Exam Vital Signs: Temp Pulse Resp BP Pulse Ox 97.9 F 70 16 120/70 97 11/19/18 15:21 11/19/18 15:58 11/19/18 15:58 11/19/18 15:21 11/19/18 15:58 Intake & Output 11/18/18 11/19/18 11/20/18 06:59 06:59 06:59 Intake Total 3360 1680 Output Total 1650 6175 Balance 1710 -4495 Weight 75 kg 75 kg General appearance: PRESENT: no acute distress, cooperative, disheveled Mouth exam: PRESENT: dry mucosa, neck supple Teeth exam: PRESENT: edentulous Respiratory exam: PRESENT: clear to auscultation catrachita, symmetrical, unlabored. ABSENT: accessory muscle use, prolonged expiratory phas, rales, rhonchi, tachypnea, wheezes Cardiovascular exam: PRESENT: RRR, +S1, +S2 Pulses: PRESENT: normal carotid pulses Vascular exam: PRESENT: normal capillary refill GI/Abdominal exam: PRESENT: normal bowel sounds, soft. ABSENT: distended, guarding, rebound, tenderness Extremities exam: ABSENT: clubbing, pedal edema Musculoskeletal exam: PRESENT: normal inspection. ABSENT: deformity Neurological exam: PRESENT: alert, awake, oriented to person, oriented to place, oriented to situation Psychiatric exam: PRESENT: appropriate affect, normal mood Skin exam: PRESENT: dry, warm Results Laboratory Results: 11/18/18 05:10 11/18/18 22:27 11/18/18 11/18/18 11/18/18 05:10 21:20 22:27 Sodium 133.3 L Cancelled 134.6 L Potassium 3.6 Cancelled 4.3 Chloride 102 Cancelled 101 Carbon Dioxide 23 Cancelled 25 Anion Gap 8 Cancelled 9 BUN 5 L Cancelled 10 Creatinine 0.37 L Cancelled 0.44 L Est GFR ( Amer) > 60 Cancelled > 60 Est GFR (Non-Af Amer) > 60 Cancelled > 60 Glucose 355 H Cancelled 303 H Calcium 8.4 Cancelled 9.1 Magnesium 1.6 11/17/18 18:47 Troponin I < 0.012 Impressions: Chest X-Ray 11/17/18 18:56 IMPRESSION: NO ACUTE RADIOGRAPHIC FINDING IN THE CHEST. Head CT 11/17/18 19:17 IMPRESSION: NORMAL BRAIN CT WITHOUT CONTRAST. EVIDENCE OF ACUTE STROKE: NO. Assessment and Plan - Diagnosis (1) HHNC (hyperglycemic hyperosmolar nonketotic coma) Is this a current diagnosis for this admission?: Yes Plan: Mental status has improved. She is received IV fluids and her urine outputs been good. Now it is a matter try to get her blood sugar under control. Her hemoglobin A1c is greater than 14, so her blood sugar has not been controlled in some time. She had body been on Lantus and a sliding scale here. I have increased her Lantus again. I have added a fixed dose to go with her sliding scale. I have also started metformin. We have ordered diabetic education. Once we can get her blood sugar under control with an appropriate regimen we will will be able to discharge her home. - Time Time Spent with patient: 25-34 minutes
[2018-11-19] MEDS ORDERED: INSULIN GLARGINE,HUM.REC.ANLOG 1,000 UNIT/10 ML VIAL SUBCUT SCH (22:00)
[2018-11-19 22:16] LABS: ANION GAP 11 (5-19); BLOOD UREA NITROGEN 10 mg/dL (7-20); CALCIUM 8.9 mg/dL (8.4-10.2); CARBON DIOXIDE 21 mmol/L (22-30); CHLORIDE 101 mmol/L (98-107); GLUCOSE 331 mg/dL (75-110); POTASSIUM 4.3 mmol/L (3.6-5.0); SODIUM 133.3 mmol/L (137-145)
[2018-11-20] MEDS: HEPARIN SOD (PORCINE) 5,000 UNIT/ML 1 ML SYRINGE SUBCUT SCH ×2 (05:10→13:44)
[2018-11-20] MEDS: METFORMIN HCL 500 MG TABLET PO SCH ×2 (07:41→16:25)
[2018-11-20] MEDS: INSULIN LISPRO 100 UNIT/ML 3 ML VIAL SUBCUT SCH ×6 (07:41→16:25)
[2018-11-20] MEDS: GABAPENTIN 100 MG CAPSULE PO SCH ×3 (10:17→17:26)
[2018-11-20] MEDS: BUSPIRONE HCL 10 MG TABLET PO SCH ×2 (10:17→17:26)
[2018-11-20] MEDS: NICOTINE 14 MG/24 HR PATCH.TD24 TD SCH (10:19)
--- NOTE | 2018-11-20 16:55 | PDOC DISCHARGE SUMMARY ---
General - Admit/Disc Date/PCP Admission Date/Primary Care Provider: 11/17/18 21:51 Discharge Date: 11/20/18 - Discharge Diagnosis (1) HHNC (hyperglycemic hyperosmolar nonketotic coma) Is this a current diagnosis for this admission?: Yes Summary: She is been uncontrolled diabetic for quite some time. Hemoglobin A1c was greater than 14. She required insulin drip and IV fluids to get her glucoses under control. She required a few days of experimentation with her insulin regimen to finally get her glucoses in the mid 200s. She will go home on a combination of Lantus, Humalog, and metformin. She has Medicaid and so she has a primary care provider assigned to her, but she does not know who that is. I strongly encouraged her to find out who that is and to get an appointment. - Additional Information Resuscitation Status: Full Code Discharge Diet: Diabetic Discharge Activity: Activity As Tolerated Prescriptions: Blood Sugar Diagnostic [Blood Glucose Test] 1 each AC #90 strip Blood-Glucose Meter [Fora V30a] 1 each AC #1 each Insulin Lispro [Humalog Kwikpen U-100] See Protocol SQ AC #3 insuln.pen Lancets [Accu-Chek Fastclix Lancet Drum] 1 each ASDIR PRN #100 lancet PRN Reason: Metformin HCl [Glucophage 500 mg Tablet] 500 mg PO BIDACBS #60 tablet Home Medications: Amitriptyline HCl [Elavil 100 mg Tablet] 100 mg PO QHS 11/18/18 Topiramate [Topamax 100 mg Tablet] 100 mg PO BID 11/18/18 Vortioxetine Hydrobromide [Trintellix] 20 mg PO DAILY 11/18/18 Blood Sugar Diagnostic [Blood Glucose Test] 1 each AC #90 strip 11/20/18 Blood-Glucose Meter [Fora V30a] 1 each AC #1 each 11/20/18 Insulin Lispro [Humalog Kwikpen U-100] See Protocol SQ AC #3 insuln.pen 11/20/18 Lancets [Accu-Chek Fastclix Lancet Drum] 1 each ASDIR PRN #100 lancet 11/20/18 Metformin HCl [Glucophage 500 mg Tablet] 500 mg PO BIDACBS #60 tablet 11/20/18 History of Present Illness History of Present Illness: DEVYN OBANDO is a 53 year old female with a history of hypertension, diab etes, anxiety and tobacco dependence. Patient presents with polyuria polydipsia fatigue and hyperglycemia. Blood sugars found to be in the 700s. She started on IV fluids and referred to the hospitalist for hyperosmolar nonketotic state. Patient denies headache, blurred vision, nausea vomiting, chemistry is negative for acidosis but positive for hyperosmolar state. Patient admits medication no ncompliance for years secondary to financial barriers however admits to a 4 pack/day smoking habit. Hospital Course Hospital Course: She was put on insulin drip and given IV fluids. We were finally able to get her blood sugars under reasonable degree of control with a combination of Lantus, Humalog, and metformin. She was given diabetic teaching and will have outpatient follow-up. We encouraged her to find out who her Medicaid provider is in to get an appointment to establish. We also strongly encouraged her to quit smoking, as she was smoking 4 packs of cigarettes a day somehow. Her labs and examination were reassuring and she was discharged in good condition. Physical Exam Vital Signs: Temp Pulse Resp BP Pulse Ox 98.8 F 89 16 111/75 98 11/20/18 11:39 11/20/18 14:00 11/20/18 11:39 11/20/18 11:39 11/20/18 11:39 Intake & Output 11/19/18 11/20/18 11/21/18 06:59 06:59 06:59 Intake Total 1680 1153 680 Output Total 6175 1200 4 Balance -4495 -47 676 Weight 75 kg 75.5 kg General appearance: PRESENT: no acute distress, cooperative, disheveled Mouth exam: PRESENT: dry mucosa, neck supple Teeth exam: PRESENT: edentulous Respiratory exam: PRESENT: clear to auscultation catrachita, symmetrical, unlabored. ABSENT: accessory muscle use, prolonged expiratory phas, rales, rhonchi, tachypnea, wheezes Cardiovascular exam: PRESENT: RRR, +S1, +S2 Pulses: PRESENT: normal carotid pulses Vascular exam: PRESENT: normal capillary refill GI/Abdominal exam: PRESENT: normal bowel sounds, soft. ABSENT: distended, guarding, rebound, tenderness Extremities exam: ABSENT: clubbing, pedal edema Musculoskeletal exam: PRESENT: normal inspection. ABSENT: deformity Neurological exam: PRESENT: alert, awake, oriented to person, oriented to place, oriented to situation Psychiatric exam: PRESENT: appropriate affect, normal mood Skin exam: PRESENT: dry, warm Results Laboratory Results: 11/18/18 05:10 11/19/18 21:47 11/19/18 21:47 Sodium 133.3 L Potassium 4.3 Chloride 101 Carbon Dioxide 21 L Anion Gap 11 BUN 10 Creatinine 0.42 L Est GFR ( Amer) > 60 Est GFR (Non-Af Amer) > 60 Glucose 331 H Calcium 8.9 11/17/18 18:47 Troponin I < 0.012 Impressions: Chest X-Ray 11/17/18 18:56 IMPRESSION: NO ACUTE RADIOGRAPHIC FINDING IN THE CHEST. Head CT 11/17/18 19:17 IMPRESSION: NORMAL BRAIN CT WITHOUT CONTRAST. EVIDENCE OF ACUTE STROKE: NO. Qualifiers - * PATIENT BEING DISCHARGED WITH ANY OF THE FOLLOWING DIAGNOSIS: No Acute Heart Failure Is this a Heart Failure Patient?: No Plan Time Spent: Greater than 30 Minutes
[2018-11-20 17:33] VITALS: BP 131/76
== END 2018-11-20 18:30 | disposition home or self-care (01) | DRG 639 ==
LOC: ER 18:42 → EH 21:51 → 4S 11-18 00:49
PROVIDERS: ADMIT Internal Medicine; ATTEND Internal Medicine
DX: E11.01 Type 2 diabetes mellitus with hyperosmolarity with coma (principal); E11.65 Type 2 diabetes mellitus with hyperglycemia; I10 Essential (primary) hypertension; F90.9 Attention-deficit hyperactivity disorder, unspecified type; F31.9 Bipolar disorder, unspecified; F41.9 Anxiety disorder, unspecified; Z87.820 Personal history of traumatic brain injury; Z79.84 Long term (current) use of oral hypoglycemic drugs; Z79.4 Long term (current) use of insulin; Z91.14 Patient's other noncompliance with medication regimen
CPT/HCPCS: 36415; 51702; 70450; 71045; 80048; 80053; 80307; 81001; 81025; 82140; 82803; 82962; 83036; 83690; 83735; 83930; 84484; 85025; 93005; 93010; 96360; 96361; 99285; J1644; J1815; J3475; J3480; J7030

== ENCOUNTER 2019-04-02 17:59 | Inpatient (IN) | payer MEDICARE, MEDICAID ==
--- NOTE | 2019-04-02 18:43 | ER Document Report ---
ED General - General Chief Complaint: High Blood Sugar Stated Complaint: HIGH BLOOD SUGAR/BLOOD IN URINE Time Seen by Provider: 04/02/19 18:34 TRAVEL OUTSIDE OF THE [place] IN LAST 30 DAYS: No - HPI Notes: Insulin-dependent diabetic he states she is not taking any insulin for 5-1/2 months presents with generalized weakness that has been worse over the last week. She states she does not have money for medication she is on disability for PTSD and she is a daily smoker. She has been having some intermittent pelvic cramping but denies any concern for vaginal discharge or infection. She is been having hematuria over the last day. No recent fevers cough congestion or chest pain. - Related Data Allergies/Adverse Reactions: No Known Allergies Allergy (Verified 05/12/17 14:52) Past Medical History - Social History Smoking Status: Unknown if Ever Smoked Family History: Arthritis, CAD, COPD, CVA, DM, Hyperlipidemia, Hypertension, Malignancy - Past Medical History Cardiac Medical History: Reports: Hx Hypertension Pulmonary Medical History: Reports: Hx COPD Endocrine Medical History: Reports: Hx Diabetes Mellitus Type 2 - When overweight Renal/ Medical History: Denies: Hx Peritoneal Dialysis Psychiatric Medical History: Reports: Hx Anxiety, Hx Attention Deficit Hyperactivity Disorder, Hx Bipolar Disorder Traumatic Medical History: Reports: Hx Traumatic Brain Injury Past Surgical History: Reports: Hx Breast Surgery - benign lumpectomy, Hx Section - x3, Hx Hysterectomy - Immunizations Hx Diphtheria, Pertussis, Tetanus Vaccination: Yes Hx Pneumococcal Vaccination: 07/08/00 Review of Systems - Review of Systems Constitutional: See HPI EENT: No symptoms reported Cardiovascular: No symptoms reported Respiratory: No symptoms reported Gastrointestinal: No symptoms reported Genitourinary: See HPI Female Genitourinary: No symptoms reported Musculoskeletal: No symptoms reported Skin: No symptoms reported Hematologic/Lymphatic: No symptoms reported Neurological/Psychological: No symptoms reported Physical Exam - Vital signs Vitals: Resp Pulse Ox 20 97 04/02/19 18:13 04/02/19 18:13 - General General appearance: Appears well, Alert - HEENT Head: Normocephalic, Atraumatic Eyes: Normal Conjunctiva: Normal Extraocular movements intact: Yes Eyelashes: Normal Pupils: PERRL Mucous membranes: Dry - Respiratory Respiratory status: No respiratory distress Chest status: Nontender Breath sounds: Normal Chest palpation: Normal - Cardiovascular Rhythm: Tachycardia Heart sounds: Normal auscultation Murmur: No - Abdominal Inspection: Normal Distension: No distension Bowel sounds: Normal Tenderness: Nontender Organomegaly: No organomegaly - Back Back: Normal - Extremities General upper extremity: Normal inspection, Normal strength General lower extremity: Normal inspection, Normal strength - Neurological Neuro grossly intact: Yes Cognition: Normal Orientation: AAOx4 - Psychological Associated symptoms: Normal affect Course - Re-evaluation Re-evalutation: 04/02/19 20:12 Patient found to have signs of early onset DKA. Discussed case with Dr. Turpin will provide 10 days of IV insulin 2 L of fluid already hung and patient will be admitted to MICU - Vital Signs Vital signs: Temp Pulse Resp BP Pulse Ox 98.0 F 92 16 138/79 H 99 04/03/19 08:07 04/03/19 09:18 04/03/19 09:18 04/03/19 08:07 04/03/19 09:18 - Laboratory Result Diagrams: 04/03/19 05:25 04/03/19 13:43 Laboratory results interpreted by me: 04/02/19 04/02/19 18:21 18:21 Sodium 120.9 L* Chloride 86 L Carbon Dioxide 15 L Anion Gap 20 H Creatinine 0.46 L Glucose 718 H* Magnesium 1.5 L Alkaline Phosphatase 231 H Albumin 2.7 L Urine Protein 30 H Urine Glucose (UA) >=500 H Urine Ketones TRACE H Urine Blood LARGE H Discharge - Discharge Clinical Impression: Hyperglycemia, Acidosis Condition: Fair Disposition: ADMITTED INPATIENT Admitting Provider: Papi (Hospitalist) Unit Admitted: [facility]
[2019-04-02] MEDS: NORMAL SALINE 1000 ML 1,000 ML IV PRN ×2 (18:51→19:16)
[2019-04-02 18:58] LABS: VENOUS BLOOD BASE EXCESS -1.7 mmol/L; VENOUS BLOOD HCO3 23.3 mmol/L (20-32); VENOUS BLOOD PCO2 40.5 mmHg (35-63); VENOUS BLOOD PH 7.38 (7.30-7.42)
[2019-04-02 18:59] LABS: HEMATOCRIT 36.4 % (36.0-47.0); MEAN CORPUSCULAR VOLUME 87 fl (80-97); PLATELET COUNT 317 10^3/uL (150-450); WHITE BLOOD COUNT 5.5 10^3/uL (4.0-10.5)
[2019-04-02 19:12] LABS: APPEARANCE,URINE TURBID; BILIRUBIN,URINE NEGATIVE (NEGATIVE); GLUCOSE, URINE >=500 mg/dL (NEGATIVE); KETONES,URINE TRACE mg/dL (NEGATIVE); LEUKOCYTE ESTERASE,URINE NEGATIVE (NEGATIVE); NITRITE,URINE NEGATIVE (NEGATIVE); PROTEIN,URINE 30 mg/dL (NEGATIVE); URINE SPECIFIC GRAVITY 1.027; UROBILINOGEN,URINE NEGATIVE mg/dL (<2.0)
[2019-04-02 19:13] LABS: COLOR,URINE PINK
[2019-04-02 19:15] LABS: ALBUMIN 2.7 g/dL (3.5-5.0); ALKALINE PHOSPHATASE 231 U/L (38-126); ASPARTATE AMINO TRANSFERASE 18 U/L (14-36); BILIRUBIN,DIRECT 0.2 mg/dL (0.0-0.4); BILIRUBIN,TOTAL 0.5 mg/dL (0.2-1.3); BLOOD UREA NITROGEN 9 mg/dL (7-20); CALCIUM 8.8 mg/dL (8.4-10.2); CARBON DIOXIDE 15 mmol/L (22-30); CHLORIDE 86 mmol/L (98-107); POTASSIUM 4.2 mmol/L (3.6-5.0); TOTAL PROTEIN 7.5 g/dL (6.3-8.2)
[2019-04-02 19:22] LABS: HEMOGLOBIN 12.2 g/dL (12.0-15.5)
[2019-04-02 19:23] LABS: MEAN CORPUSCULAR HGB CONC 33.5 g/dL (32.0-36.0)
[2019-04-02 19:27] LABS: GLUCOSE 718 mg/dL (75-110)
[2019-04-02 19:28] LABS: ANION GAP 20 (5-19)
--- NOTE | 2019-04-02 19:29 | RADIOLOGY REPORT (SQ) ---
EXAM DESCRIPTION: CHEST SINGLE VIEW COMPLETED DATE/TIME: 04/02/2019 7:07 pm REASON FOR STUDY: weak, smoker COMPARISON: 11/17/2018. EXAM PARAMETERS: NUMBER OF VIEWS: One view. TECHNIQUE: Single frontal radiographic view of the chest acquired. RADIATION DOSE: NA LIMITATIONS: None. FINDINGS: LUNGS AND PLEURA: No opacities, masses or pneumothorax. No pleural effusion. MEDIASTINUM AND HILAR STRUCTURES: No masses. Contour normal. HEART AND VASCULAR STRUCTURES: Heart normal in size. Normal vasculature. BONES: No acute findings. HARDWARE: None in the chest. OTHER: No other significant finding. IMPRESSION: NO ACUTE RADIOGRAPHIC FINDING IN THE CHEST. TECHNICAL DOCUMENTATION: JOB ID: [id number] [employer]- All Rights Reserved Reading location - IP/workstation name: [email or web address]
[2019-04-02 19:34] LABS: ABSOLUTE MONOCYTES # (MANUAL) 0.2 10^3/uL (0.1-1.4); ANISOCYTOSIS SLIGHT; BASOPHILS % (MANUAL) 0 % (0-2); EOSINOPHILS % (MANUAL) 1 % (0-6); LYMPHOCYTES % (MANUAL) 37 % (13-45); MONOCYTES % (MANUAL) 4 % (3-13); PLATELET COMMENT ADEQUATE; SEGMENTED NEUTROPHILS % (MAN) 58 % (42-78); TOTAL CELLS COUNTED 100
[2019-04-02] MEDS ORDERED: IPRATROPIUM/ALBUTEROL 0.5-2.5 MG/3 ML AMPUL NEB PRN (20:12)
[2019-04-02] MEDS ORDERED: DEXTROSE 40% GEL 15 GM TUBE PO PRN ×2 (20:12)
[2019-04-02] MEDS ORDERED: MAG HYDROX/AL HYDROX/SIMETH SUSP 30 ML UDCUP PO PRN (20:12)
[2019-04-02] MEDS ORDERED: GLUCAGON,HUMAN RECOMB 1 MG INJ IM PRN (20:12)
[2019-04-02] MEDS ORDERED: ACETAMINOPHEN 325 MG TABLET PO PRN (20:12)
[2019-04-02] MEDS ORDERED: ONDANSETRON HCL INJ/PF 4 MG/2 ML SDV IV PRN (20:12)
[2019-04-02] MEDS ORDERED: DEXTROSE 50%-WATER 25 GM/50 ML DISP.SYRIN IV PRN ×2 (20:12)
[2019-04-02] MEDS ORDERED: NORMAL SALINE 1000 ML 1,000 ML IV SCH (20:15)
[2019-04-02] MEDS ORDERED: NORMAL SALINE 1000 ML 1,000 ML IV PRN (20:35)
[2019-04-02] MEDS: INSULIN LISPRO 100 UNIT/ML 3 ML VIAL SUBCUT SCH (20:39)
[2019-04-02] MEDS: DOCUSATE SODIUM 100 MG CAPSULE PO SCH (20:39)
[2019-04-02 21:37] LABS: ANION GAP 18 (5-19); BLOOD UREA NITROGEN 7 mg/dL (7-20); CALCIUM 7.3 mg/dL (8.4-10.2); CARBON DIOXIDE 12 mmol/L (22-30); CHLORIDE 98 mmol/L (98-107); CREATINE KINASE 30 U/L (30-135); GLUCOSE 370 mg/dL (75-110)
[2019-04-02 21:41] LABS: PHOSPHORUS 3.4 mg/dL (2.5-4.5)
[2019-04-02 21:49] LABS: CREATINE KINASE MB 0.82 ng/mL (<4.55)
[2019-04-02 21:51] LABS: POTASSIUM 3.1 mmol/L (3.6-5.0); TROPONIN I < 0.012 ng/mL
[2019-04-02] MEDS ORDERED: INSULIN GLARGINE,HUM.REC.ANLOG 1,000 UNIT/10 ML VIAL SUBCUT SCH (22:00)
[2019-04-02] MEDS: MAGNESIUM SULFATE/D5W 1 GM/100 ML RTUPB IV SCH ×2 (22:39→22:48)
[2019-04-02] MEDS: HEPARIN SOD (PORCINE) 5,000 UNIT/ML 1 ML VIAL SUBCUT SCH (22:48)
[2019-04-02] MEDS: POTASSI CL 20 MEQ/50 ML RIDER 20 MEQ/50 ML RTUPB IV SCH (22:49)
[2019-04-02 23:49] LABS: URINE AMPHETAMINES SCREEN NEGATIVE; URINE BARBITURATES SCREEN NEGATIVE; URINE BENZODIAZEPINES SCREEN NEGATIVE; URINE COCAINE SCREEN NEGATIVE; URINE MARIJUANA (THC) SCREEN NEGATIVE; URINE METHADONE SCREEN NEGATIVE; URINE PHENCYCLIDINE SCREEN NEGATIVE
[2019-04-03] MEDS: POTASSI CL 20 MEQ/D5-1/2NS 1L 1,000 ML IV PRN ×4 (00:33→23:59)
[2019-04-03] MEDS: INSULIN REG, HUMAN 100 UNIT/ML 3 ML VIAL (PYX) SUBCUT SCH ×4 (00:38→18:23)
[2019-04-03] MEDS: INSULIN LISPRO 100 UNIT/ML 3 ML VIAL SUBCUT SCH ×4 (00:39→18:22)
[2019-04-03] MEDS: POTASSI CL 20 MEQ/50 ML RIDER 20 MEQ/50 ML RTUPB IV SCH ×5 (00:42→09:25)
[2019-04-03 02:01] LABS: ANION GAP 15 (5-19); BLOOD UREA NITROGEN 4 mg/dL (7-20); CALCIUM 7.2 mg/dL (8.4-10.2); CARBON DIOXIDE 13 mmol/L (22-30); CHLORIDE 103 mmol/L (98-107); GLUCOSE 237 mg/dL (75-110)
[2019-04-03 02:45] LABS: POTASSIUM 2.8 mmol/L (3.6-5.0)
[2019-04-03 03:32] LABS: CREATINE KINASE MB 0.73 ng/mL (<4.55)
[2019-04-03 03:33] LABS: TROPONIN I < 0.012 ng/mL
[2019-04-03] MEDS: HEPARIN SOD (PORCINE) 5,000 UNIT/ML 1 ML VIAL SUBCUT SCH ×3 (05:02→22:18)
[2019-04-03] MEDS ORDERED: CEFTRIAXONE 1 GM/D5W RTU 1 GM/50 ML RTUPB IV ONE ×2 (05:26→06:00)
--- NOTE | 2019-04-03 05:31 | PDOC H&P ---
History of Present Illness Admission Date/PCP: 04/02/19 20:19 Patient complains of: Abdominal pain, nausea and hyperglycemia History of Present Illness: DEVYN OBANDO is a 54 year old female with a past medical history of hypertension, diabetes, anxiety and tobacco dependence presents with 4 days of polyuria, polydipsia, fatigue and hyperglycemia. She is found to have metabolic acidosis, hyperkalemia, glucose over 700 with urine ketones, WBCs and blood. Rashaun beltran is well-known to the hospital service for recurrent admissions secondary to noncompliance and DKA. She admits insulin noncompliance but she continues a 3-4 pack a day smoking habit. In the emergency room she receives IV insulin, normal saline and referred to the hospitalist for admission. Past Medical History Cardiac Medical History: Reports: Hypertension Pulmonary Medical History: Reports: Chronic Obstructive Pulmonary Disease (COPD) Endocrine Medical History: Reports: Diabetes Mellitus Type 2 - When overweight Psychiatric Medical History: Reports: Attention Deficit Hyperactivity Disorder, Bipolar Disorder Traumatic Medical History: Reports: Traumatic Brain Injury Past Surgical History Past Surgical History: Reports: Section - x3, Hysterectomy Social History Information Source: Patient Smoking Status: Current Every Day Smoker Cigarettes Packs Per Day: 3 Number of Years Smokin Frequency of Alcohol Use: None Drugs: None - Advance Directive Resuscitation Status: Full Code Family History Family History: Arthritis, CAD, COPD, CVA, DM, Hyperlipidemia, Hypertension, Malignancy Parental Family History Reviewed: Yes Children Family History Reviewed: Yes Sibling(s) Family History Reviewed.: Yes Medication/Allergy Home Medications: No Home Medications 04/02/19 Allergies/Adverse Reactions: No Known Allergies Allergy (Verified 05/12/17 14:52) Review of Systems Constitutional: PRESENT: as per HPI, fatigue, weakness, weight loss. ABSENT: chills, fever(s), headache(s), weight gain Eyes: ABSENT: visual disturbances Ears: ABSENT: hearing changes Cardiovascular: ABSENT: chest pain, dyspnea on exertion, edema, orthropnea, palpitations Respiratory: ABSENT: cough, hemoptysis Gastrointestinal: PRESENT: bloating, nausea, vomiting. ABSENT: abdominal pain, constipation, diarrhea, hematemesis, hematochezia Genitourinary: ABSENT: dysuria, hematuria Musculoskeletal: ABSENT: joint swelling Integumentary: ABSENT: rash, wounds Neurological: ABSENT: abnormal gait, abnormal speech, confusion, dizziness, focal weakness, syncope Psychiatric: ABSENT: anxiety, depression, homidical ideation, suicidal ideation Endocrine: PRESENT: as per HPI, polydipsia, polyphagia, polyuria. ABSENT: cold intolerance, heat intolerance Hematologic/Lymphatic: ABSENT: easy bleeding, easy bruising Physical Exam Vital Signs: Temp Pulse Resp BP Pulse Ox 97.7 F 87 18 127/65 H 98 04/03/19 04:49 04/03/19 04:49 04/03/19 04:49 04/03/19 04:49 04/03/19 04:49 Intake & Output 04/01/19 04/02/19 04/03/19 11:59 11:59 11:59 Intake Total 2662 Balance 2662 Weight 75.3 kg General appearance: PRESENT: other - Appears much older than stated age with temporal wasting Head exam: PRESENT: atraumatic, normocephalic Eye exam: PRESENT: conjunctiva pink, EOMI, PERRLA. ABSENT: scleral icterus Ear exam: PRESENT: normal external ear exam Mouth exam: PRESENT: moist, tongue midline Teeth exam: PRESENT: edentulous Neck exam: ABSENT: carotid bruit, JVD, lymphadenopathy, thyromegaly Respiratory exam: PRESENT: accessory muscle use, clear to auscultation catrachita, prolonged expiratory phas, tachypnea. ABSENT: rales, rhonchi, wheezes Cardiovascular exam: PRESENT: +S1, +S2, tachycardia Pulses: PRESENT: normal dorsalis pedis pul Vascular exam: PRESENT: normal capillary refill GI/Abdominal exam: PRESENT: hypoactive bowel sounds, normal bowel sounds, soft. ABSENT: distended, guarding, mass, organolmegaly, rebound, tenderness Rectal exam: PRESENT: deferred Extremities exam: PRESENT: full ROM. ABSENT: calf tenderness, clubbing, pedal edema Neurological exam: PRESENT: alert, awake, oriented to person, oriented to place, oriented to time, oriented to situation, CN II-XII grossly intact. ABSENT: motor sensory deficit Psychiatric exam: PRESENT: appropriate affect, normal mood. ABSENT: homicidal ideation, suicidal ideation Skin exam: PRESENT: dry, intact, warm. ABSENT: cyanosis, rash Results Laboratory Results: 04/02/19 18:21 04/03/19 01:33 04/02/19 04/02/19 04/02/19 18:21 18:21 18:21 WBC 5.5 RBC 4.20 Hgb 12.2 Hct 36.4 MCV 87 MCH 29.0 MCHC 33.5 RDW 14.0 Plt Count 317 Seg Neutrophils % Not Reportable VBG pH 7.38 VBG pCO2 40.5 VBG HCO3 23.3 VBG Base Excess -1.7 Sodium 120.9 L* Potassium 4.2 Chloride 86 L Carbon Dioxide 15 L Anion Gap 20 H BUN 9 Creatinine 0.46 L Est GFR ( Amer) > 60 Glucose 718 H* Calcium 8.8 Phosphorus Magnesium 1.5 L Total Bilirubin 0.5 AST 18 Alkaline Phosphatase 231 H Total Protein 7.5 Albumin 2.7 L Urine Color Urine Appearance Urine pH Ur Specific [place] Urine Protein Urine Glucose (UA) Urine Ketones Urine Blood Urine Nitrite Ur Leukocyte Esterase Urine WBC (Auto) Urine RBC (Auto) 04/02/19 04/02/19 04/02/19 18:21 21:00 21:00 WBC RBC Hgb Hct MCV MCH MCHC RDW Plt Count Seg Neutrophils % VBG pH VBG pCO2 VBG HCO3 VBG Base Excess Sodium 127.5 L Potassium 3.1 L D Chloride 98 Carbon Dioxide 12 L Anion Gap 18 BUN 7 Creatinine 0.34 L Est GFR ( Amer) > 60 Glucose 370 H Calcium 7.3 L Phosphorus 3.4 Magnesium 1.3 L Total Bilirubin AST Alkaline Phosphatase Total Protein Albumin Urine Color PINK Urine Appearance TURBID Urine pH 6.0 Ur Specific [place] 1.027 Urine Protein 30 H Urine Glucose (UA) >=500 H Urine Ketones TRACE H Urine Blood LARGE H Urine Nitrite NEGATIVE Ur Leukocyte Esterase NEGATIVE Urine WBC (Auto) 53 Urine RBC (Auto) >182 04/03/19 01:33 WBC RBC Hgb Hct MCV MCH MCHC RDW Plt Count Seg Neutrophils % VBG pH VBG pCO2 VBG HCO3 VBG Base Excess Sodium 130.6 L Potassium 2.8 L* Chloride 103 Carbon Dioxide 13 L Anion Gap 15 BUN 4 L Creatinine 0.31 L Est GFR ( Amer) > 60 Glucose 237 H Calcium 7.2 L Phosphorus Magnesium Total Bilirubin AST Alkaline Phosphatase Total Protein Albumin Urine Color Urine Appearance Urine pH Ur Specific [place] Urine Protein Urine Glucose (UA) Urine Ketones Urine Blood Urine Nitrite Ur Leukocyte Esterase Urine WBC (Auto) Urine RBC (Auto) 04/02/19 04/02/19 04/02/19 18:21 21:00 21:00 Creatine Kinase 30 CK-MB (CK-2) 0.82 Troponin I < 0.012 < 0.012 04/03/19 04/03/19 02:51 02:51 Creatine Kinase 30 CK-MB (CK-2) 0.73 Troponin I < 0.012 Impressions: Chest X-Ray 04/02/19 18:39 IMPRESSION: NO ACUTE RADIOGRAPHIC FINDING IN THE CHEST. Assessment and Plan - Diagnosis (1) DKA (diabetic ketoacidoses) Is this a current diagnosis for this admission?: Yes Plan: Diabetic ketoacidosis patient has had some degree of polyuria polydipsia with nausea and uncontrolled hyperglycemia with supporting labs. Patient will receive IV fluids IV insulin serial chemistries every 6 hours for evaluation for electrolyte repletion. Continued evaluation for underlying cause if not found Patient will require diabetic education and consideration of mental health evaluation. Patient's nurse is instructed on multiple occasions to initiate ordered labs and notify MD of new chemistry lab results. (2) Diabetes Is this a current diagnosis for this admission?: Yes Plan: Education, insulin, follow-up A1c and discharge planning for evaluation of insulin source (3) Tobacco abuse Is this a current diagnosis for this admission?: Yes Plan: Tobacco dependence. 120 pack years, 3 packs/day currently, she agrees to transdermal nicotine. - Time Time Spent with patient: 25-34 minutes - Inpatient Certification Medical Necessity: Need Close Monitoring Due to Risk of Patient Decompensation
[2019-04-03] MEDS ORDERED: NICOTINE 21 MG/24 HR PATCH.TD24 TD ONE (05:45)
[2019-04-03 05:57] LABS: HEMATOCRIT 30.9 % (36.0-47.0); PLATELET COUNT 255 10^3/uL (150-450); RED BLOOD COUNT 3.71 10^6/uL (3.72-5.28); WHITE BLOOD COUNT 4.4 10^3/uL (4.0-10.5)
[2019-04-03] MEDS ORDERED: POTASSIUM CHLORIDE 10 MEQ CAPSULE.ER PO ONE (06:00)
[2019-04-03 06:07] LABS: ANION GAP 11 (5-19); BLOOD UREA NITROGEN 3 mg/dL (7-20); CALCIUM 7.3 mg/dL (8.4-10.2); CARBON DIOXIDE 13 mmol/L (22-30); CHLORIDE 106 mmol/L (98-107); GLUCOSE 250 mg/dL (75-110)
[2019-04-03 06:19] LABS: HEMOGLOBIN 10.4 g/dL (12.0-15.5); MEAN CORPUSCULAR HEMOGLOBIN 27.9 pg (27.0-33.4); MEAN CORPUSCULAR HGB CONC 33.5 g/dL (32.0-36.0)
[2019-04-03 06:20] LABS: MEAN CORPUSCULAR VOLUME 83 fl (80-97); POTASSIUM 4.3 mmol/L (3.6-5.0)
[2019-04-03 06:34] LABS: ABSOLUTE LYMPHOCYTES# (MANUAL) 2.2 10^3/uL (0.5-4.7); ABSOLUTE MONOCYTES # (MANUAL) 0.1 10^3/uL (0.1-1.4); BASOPHILS % (MANUAL) 0 % (0-2); EOSINOPHILS % (MANUAL) 7 % (0-6); LYMPHOCYTES % (MANUAL) 50 % (13-45); MONOCYTES % (MANUAL) 3 % (3-13); SEGMENTED NEUTROPHILS % (MAN) 40 % (42-78); TOTAL CELLS COUNTED 100
[2019-04-03 06:35] LABS: ANISOCYTOSIS SLIGHT; PLATELET COMMENT ADEQUATE
[2019-04-03] MEDS: DOCUSATE SODIUM 100 MG CAPSULE PO SCH ×2 (09:25→17:37)
[2019-04-03 10:11] LABS: ANION GAP 13 (5-19); CALCIUM 7.4 mg/dL (8.4-10.2); CARBON DIOXIDE 11 mmol/L (22-30); CHLORIDE 106 mmol/L (98-107); CREATINE KINASE 35 U/L (30-135); GLUCOSE 295 mg/dL (75-110)
[2019-04-03 10:16] LABS: BLOOD UREA NITROGEN < 2 mg/dL (7-20)
[2019-04-03 10:22] LABS: CREATINE KINASE MB 0.74 ng/mL (<4.55)
[2019-04-03 10:24] LABS: POTASSIUM 5.5 mmol/L (3.6-5.0); TROPONIN I < 0.012 ng/mL
[2019-04-03] MEDS ORDERED: KETOROLAC TROMETHAMINE INJ/PF 30 MG/1 ML SDV IV ONE (11:00)
[2019-04-03] MEDS ORDERED: DEXTROSE 40% GEL 15 GM TUBE PO PRN ×2 (14:12)
[2019-04-03] MEDS ORDERED: GLUCAGON,HUMAN RECOMB 1 MG INJ IM PRN (14:12)
[2019-04-03] MEDS ORDERED: DEXTROSE 50%-WATER 25 GM/50 ML DISP.SYRIN IV PRN ×2 (14:12)
[2019-04-03 14:36] LABS: ANION GAP 13 (5-19); CARBON DIOXIDE 12 mmol/L (22-30); CHLORIDE 105 mmol/L (98-107); GLUCOSE 241 mg/dL (75-110); POTASSIUM 4.7 mmol/L (3.6-5.0)
[2019-04-03 14:38] LABS: BLOOD UREA NITROGEN < 2 mg/dL (7-20)
[2019-04-03 14:39] LABS: CALCIUM 7.8 mg/dL (8.4-10.2)
[2019-04-03] MEDS ORDERED: NORMAL SALINE 1000 ML 1,000 ML IV ONE (14:43)
--- NOTE | 2019-04-03 14:46 | PDOC PROGRESS REPORT ---
Subjective Progress Note for:: 04/03/19 Subjective:: This is a 54 yr old female with HTN, IDDM-but currently not on an insulin regimen and anxiety who presented with weakness, polydipsia and polyuria. Patient was noted to be in DKA upon presentation. No acute event overnight. Denies chest pain or shortness of breath. No nausea. She does that she wants to eat. Currently on D5 half-normal saline but not on insulin drip. Hold sliding scale and Lantus. Start patient on insulin drip. Repeat BMP still shows she is in DKA with bicarb trending down. She says she is supposed to be an insulin regimen but that she is unable to afford her medications due to insurance issues. Reason For Visit: DKA Physical Exam Vital Signs: Temp Pulse Resp BP Pulse Ox 98.0 F 92 16 138/79 H 99 04/03/19 08:07 04/03/19 09:18 04/03/19 09:18 04/03/19 08:07 04/03/19 09:18 Intake & Output 04/02/19 04/03/19 04/04/19 06:59 06:59 06:59 Intake Total 3708 50 Output Total 900 Balance 2808 50 Weight 165 lb 5.547 oz General appearance: PRESENT: no acute distress, well-developed, well-nourished Head exam: PRESENT: atraumatic, normocephalic Eye exam: PRESENT: conjunctiva pink, EOMI, PERRLA. ABSENT: scleral icterus Ear exam: PRESENT: normal external ear exam Neck exam: ABSENT: carotid bruit, JVD, lymphadenopathy, thyromegaly Respiratory exam: PRESENT: clear to auscultation catrachita. ABSENT: rales, rhonchi, wheezes Cardiovascular exam: PRESENT: RRR. ABSENT: diastolic murmur, rubs, systolic murmur Pulses: PRESENT: normal dorsalis pedis pul GI/Abdominal exam: PRESENT: normal bowel sounds, soft. ABSENT: distended, guarding, mass, organolmegaly, rebound, tenderness Rectal exam: PRESENT: deferred Neurological exam: PRESENT: alert, awake, oriented to person, oriented to place, oriented to time, oriented to situation, CN II-XII grossly intact. ABSENT: motor sensory deficit Results Laboratory Results: 04/03/19 05:25 04/03/19 09:33 04/02/19 04/02/19 04/02/19 18:21 18:21 18:21 WBC 5.5 RBC 4.20 Hgb 12.2 Hct 36.4 MCV 87 MCH 29.0 MCHC 33.5 RDW 14.0 Plt Count 317 Seg Neutrophils % Not Reportable VBG pH 7.38 VBG pCO2 40.5 VBG HCO3 23.3 VBG Base Excess -1.7 Sodium 120.9 L* Potassium 4.2 Chloride 86 L Carbon Dioxide 15 L Anion Gap 20 H BUN 9 Creatinine 0.46 L Est GFR ( Amer) > 60 Glucose 718 H* Calcium 8.8 Phosphorus Magnesium 1.5 L Total Bilirubin 0.5 AST 18 Alkaline Phosphatase 231 H Total Protein 7.5 Albumin 2.7 L Urine Color Urine Appearance Urine pH Ur Specific [place] Urine Protein Urine Glucose (UA) Urine Ketones Urine Blood Urine Nitrite Ur Leukocyte Esterase Urine WBC (Auto) Urine RBC (Auto) 04/02/19 04/02/19 04/02/19 18:21 21:00 21:00 WBC RBC Hgb Hct MCV MCH MCHC RDW Plt Count Seg Neutrophils % VBG pH VBG pCO2 VBG HCO3 VBG Base Excess Sodium 127.5 L Potassium 3.1 L D Chloride 98 Carbon Dioxide 12 L Anion Gap 18 BUN 7 Creatinine 0.34 L Est GFR ( Amer) > 60 Glucose 370 H Calcium 7.3 L Phosphorus 3.4 Magnesium 1.3 L Total Bilirubin AST Alkaline Phosphatase Total Protein Albumin Urine Color PINK Urine Appearance TURBID Urine pH 6.0 Ur Specific [place] 1.027 Urine Protein 30 H Urine Glucose (UA) >=500 H Urine Ketones TRACE H Urine Blood LARGE H Urine Nitrite NEGATIVE Ur Leukocyte Esterase NEGATIVE Urine WBC (Auto) 53 Urine RBC (Auto) >182 04/03/19 04/03/19 04/03/19 01:33 05:25 05:25 WBC 4.4 RBC 3.71 L Hgb 10.4 L Hct 30.9 L MCV 83 D MCH 27.9 MCHC 33.5 RDW 14.0 Plt Count 255 Seg Neutrophils % Not Reportable VBG pH VBG pCO2 VBG HCO3 VBG Base Excess Sodium 130.6 L 129.6 L Potassium 2.8 L* 4.3 D Chloride 103 106 Carbon Dioxide 13 L 13 L Anion Gap 15 11 BUN 4 L 3 L Creatinine 0.31 L 0.29 L Est GFR ( Amer) > 60 > 60 Glucose 237 H 250 H Calcium 7.2 L 7.3 L Phosphorus Magnesium Total Bilirubin AST Alkaline Phosphatase Total Protein Albumin Urine Color Urine Appearance Urine pH Ur Specific [place] Urine Protein Urine Glucose (UA) Urine Ketones Urine Blood Urine Nitrite Ur Leukocyte Esterase Urine WBC (Auto) Urine RBC (Auto) 04/03/19 09:33 WBC RBC Hgb Hct MCV MCH MCHC RDW Plt Count Seg Neutrophils % VBG pH VBG pCO2 VBG HCO3 VBG Base Excess Sodium 129.5 L Potassium 5.5 H D Chloride 106 Carbon Dioxide 11 L Anion Gap 13 BUN < 2 L Creatinine 0.32 L Est GFR ( Amer) > 60 Glucose 295 H Calcium 7.4 L Phosphorus Magnesium Total Bilirubin AST Alkaline Phosphatase Total Protein Albumin Urine Color Urine Appearance Urine pH Ur Specific [place] Urine Protein Urine Glucose (UA) Urine Ketones Urine Blood Urine Nitrite Ur Leukocyte Esterase Urine WBC (Auto) Urine RBC (Auto) 04/02/19 04/02/19 04/02/19 18:21 21:00 21:00 Creatine Kinase 30 CK-MB (CK-2) 0.82 Troponin I < 0.012 < 0.012 04/03/19 04/03/19 04/03/19 02:51 02:51 09:33 Creatine Kinase 30 35 CK-MB (CK-2) 0.73 Troponin I < 0.012 04/03/19 09:33 Creatine Kinase CK-MB (CK-2) 0.74 Troponin I < 0.012 Impressions: Chest X-Ray 04/02/19 18:39 IMPRESSION: NO ACUTE RADIOGRAPHIC FINDING IN THE CHEST. Assessment and Plan - Diagnosis (1) DKA (diabetic ketoacidoses) Is this a current diagnosis for this admission?: Yes Plan: Currently on D5 half-normal saline but not on insulin drip. Hold sliding scale and Lantus. Start patient on insulin drip. Repeat BMP still shows she is in DKA with bicarb trending down. She says she is supposed to be an insulin regimen but that she is unable to afford her medications due to insurance is sues. Decrease D5 0.45 NS (w/ 40 meqs KCl) from 200 to 125 cc/hr. Will give a bolus of normal saline. Repeat BMP. (2) HTN (hypertension) Is this a current diagnosis for this admission?: Yes Plan: Plan to start losartan when she is ready for diet/oral intake.
[2019-04-03] MEDS: NORMAL SALINE 100 ML with INSULIN REGULAR, HUMAN 100 UNIT IV PRN ×2 (15:48)
[2019-04-03 19:00] LABS: ANION GAP 10 (5-19); CARBON DIOXIDE 14 mmol/L (22-30); CHLORIDE 105 mmol/L (98-107); GLUCOSE 289 mg/dL (75-110)
[2019-04-03 19:03] LABS: BLOOD UREA NITROGEN < 2 mg/dL (7-20)
[2019-04-03 19:04] LABS: CALCIUM 7.7 mg/dL (8.4-10.2)
[2019-04-04] MEDS: INSULIN LISPRO 100 UNIT/ML 3 ML VIAL SUBCUT SCH ×5 (00:03→22:47)
[2019-04-04] MEDS: INSULIN REG, HUMAN 100 UNIT/ML 3 ML VIAL (PYX) SUBCUT SCH ×2 (00:04→06:07)
[2019-04-04 00:50] LABS: ANION GAP 9 (5-19); CALCIUM 7.9 mg/dL (8.4-10.2); CARBON DIOXIDE 17 mmol/L (22-30); CHLORIDE 107 mmol/L (98-107); GLUCOSE 133 mg/dL (75-110); POTASSIUM 3.2 mmol/L (3.6-5.0)
[2019-04-04 00:51] LABS: BLOOD UREA NITROGEN < 2 mg/dL (7-20)
[2019-04-04] MEDS ORDERED: POTASSI CL 20 MEQ/D5-1/2NS 1L 1,000 ML IV PRN (02:14)
[2019-04-04] MEDS ORDERED: POTASSIUM CHLORIDE 10 MEQ CAPSULE.ER PO ONE ×2 (03:00→09:30)
[2019-04-04] MEDS: NORMAL SALINE 100 ML with INSULIN REGULAR, HUMAN 100 UNIT IV PRN ×2 (03:26)
[2019-04-04] MEDS: HEPARIN SOD (PORCINE) 5,000 UNIT/ML 1 ML VIAL SUBCUT SCH ×3 (05:16→22:50)
[2019-04-04 07:35] LABS: ANION GAP 9 (5-19); CARBON DIOXIDE 17 mmol/L (22-30); CHLORIDE 107 mmol/L (98-107); GLUCOSE 156 mg/dL (75-110); POTASSIUM 3.7 mmol/L (3.6-5.0)
[2019-04-04 07:39] LABS: BLOOD UREA NITROGEN < 2 mg/dL (7-20)
--- NOTE | 2019-04-04 08:51 | EKG REPORT ---
SEVERITY:- ABNORMAL ECG - SINUS TACHYCARDIA RIGHT ATRIAL ABNORMALITY : Confirmed by: Denilson Calero 04-Apr-2019 08:49:49
[2019-04-04] MEDS: HUM INSULIN NPH/REG INSULIN HM 100 UNIT/1 ML 3 ML SUBCUT SCH ×2 (09:39→16:21)
[2019-04-04] MEDS: DOCUSATE SODIUM 100 MG CAPSULE PO SCH ×2 (09:41→17:12)
[2019-04-04] MEDS: NICOTINE 21 MG/24 HR PATCH.TD24 TD SCH (09:41)
[2019-04-04] MEDS: CEFTRIAXONE 1 GM/D5W RTU 1 GM/50 ML RTUPB IV SCH (09:45)
--- NOTE | 2019-04-04 13:11 | PDOC PROGRESS REPORT ---
Subjective Progress Note for:: 04/04/19 Subjective:: This is a 54 yr old female with HTN, IDDM-but currently not on an insulin regimen and anxiety who presented with weakness, polydipsia and polyuria. Patient was noted to be in DKA upon presentation. 04/03: Denies chest pain or shortness of breath. No nausea. She does that she wants to eat. Currently on D5 half-normal saline but not on insulin drip. Hold sliding scale and Lantus. Start patient on insulin drip. Repeat BMP still shows she is in DKA with bicarb trending down. She says she is supposed to be an insulin regimen but that she is unable to afford her medications due to insurance issues. 04/04: No acute event overnight. DKA appears to have resolved. She denies acute complaints aside from being hungry. Will transition to long acting insulin and start her on a diet. Reason For Visit: DKA Physical Exam Vital Signs: Temp Pulse Resp BP Pulse Ox 97.5 F 91 14 100/57 L 93 04/04/19 07:58 04/04/19 09:18 04/04/19 09:18 04/04/19 07:58 04/04/19 09:18 Intake & Output 04/03/19 04/04/19 04/05/19 06:59 06:59 06:59 Intake Total 3708 4464 Output Total 900 2200 Balance 2808 2264 Weight 165 lb 5.547 oz 166 lb 0.129 oz General appearance: PRESENT: no acute distress, well-developed, well-nourished Head exam: PRESENT: atraumatic, normocephalic Eye exam: PRESENT: conjunctiva pink, EOMI, PERRLA. ABSENT: scleral icterus Ear exam: PRESENT: normal external ear exam Mouth exam: PRESENT: moist, tongue midline Neck exam: ABSENT: carotid bruit, JVD, lymphadenopathy, thyromegaly Respiratory exam: PRESENT: clear to auscultation catrachita. ABSENT: rales, rhonchi, wheezes Cardiovascular exam: PRESENT: RRR. ABSENT: diastolic murmur, rubs, systolic murmur Pulses: PRESENT: normal dorsalis pedis pul GI/Abdominal exam: PRESENT: normal bowel sounds, soft. ABSENT: distended, guar ding, mass, organolmegaly, rebound, tenderness Rectal exam: PRESENT: deferred Extremities exam: PRESENT: full ROM. ABSENT: calf tenderness, clubbing, pedal edema Neurological exam: PRESENT: alert, awake, oriented to person, oriented to place, oriented to time, oriented to situation, CN II-XII grossly intact. ABSENT: motor sensory deficit Results Laboratory Results: 04/03/19 05:25 04/04/19 07:10 04/03/19 04/03/19 04/04/19 13:43 18:05 00:27 Sodium 129.9 L 129.3 L 133.1 L Potassium 4.7 4.0 3.2 L Chloride 105 105 107 Carbon Dioxide 12 L 14 L 17 L Anion Gap 13 10 9 BUN < 2 L < 2 L < 2 L Creatinine 0.32 L 0.36 L 0.34 L Est GFR ( Amer) > 60 > 60 > 60 Glucose 241 H 289 H 133 H Calcium 7.8 L 7.7 L 7.9 L 04/04/19 07:10 Sodium 132.7 L Potassium 3.7 Chloride 107 Carbon Dioxide 17 L Anion Gap 9 BUN < 2 L Creatinine 0.38 L Est GFR ( Amer) > 60 Glucose 156 H Calcium 8.0 L 04/02/19 04/02/19 04/02/19 18:21 21:00 21:00 Creatine Kinase 30 CK-MB (CK-2) 0.82 Troponin I < 0.012 < 0.012 04/03/19 04/03/19 04/03/19 02:51 02:51 09:33 Creatine Kinase 30 35 CK-MB (CK-2) 0.73 Troponin I < 0.012 04/03/19 09:33 Creatine Kinase CK-MB (CK-2) 0.74 Troponin I < 0.012 Impressions: Chest X-Ray 04/02/19 18:39 IMPRESSION: NO ACUTE RADIOGRAPHIC FINDING IN THE CHEST. Assessment and Plan - Diagnosis (1) DKA (diabetic ketoacidoses) Is this a current diagnosis for this admission?: Yes Plan: 04/03: Currently on D5 half-normal saline but not on insulin drip. Hold sliding scale and Lantus. Start patient on insulin drip. Repeat BMP still shows she is in DKA with bicarb trending down. She says she is supposed to be an insulin regimen but that she is unable to afford her medications due to insurance issues. Decrease D5 0.45 NS (w/ 40 meqs KCl) from 200 to 125 cc/hr. Will give a bolus of normal saline. Repeat BMP. 04/04: DKA appears to have resolved. Will transition to insulin 70/30. Will start at 10 u bid. Switch IVF to NS. Start diabetic diet. DC insulin drip 2 hrs after giving 70/30. (2) HTN (hypertension) Is this a current diagnosis for this admission?: Yes Plan: Will start patient on lisinopril.
[2019-04-04 13:46] LABS: ANION GAP 10 (5-19); CALCIUM 8.5 mg/dL (8.4-10.2); CARBON DIOXIDE 18 mmol/L (22-30); CHLORIDE 104 mmol/L (98-107); GLUCOSE 264 mg/dL (75-110); POTASSIUM 4.2 mmol/L (3.6-5.0)
[2019-04-04 13:57] LABS: BLOOD UREA NITROGEN < 2 mg/dL (7-20)
--- NOTE | 2019-04-04 22:19 | RADIOLOGY REPORT (SQ) ---
US RETROPERITONEUM EXAM DATE: 04/04/2019 6:18 PM CDT HISTORY: Hematuria. COMPARISON: None. TECHNIQUE: Grayscale and color Doppler ultrasound images of the kidneys were obtained. FINDINGS: The right kidney measures 12.1 cm in length, which is normal size. The cortex has normal thickness and echogenicity. There is no right-sided kidney stone, mass or hydronephrosis. The left kidney measures 13.1 cm in length, which is normal size. The cortex has normal thickness and echogenicity. There is no left-sided kidney stone, mass or hydronephrosis. The urinary bladder is unremarkable. Partially visualized gallbladder in the right upper quadrant containing multiple gallstones. IMPRESSION: No acute renal findings.
[2019-04-04] MEDS ORDERED: INSULIN LISPRO 100 UNIT/ML 3 ML VIAL SUBCUT ONE (22:30)
[2019-04-04] MEDS: NORMAL SALINE 1000 ML 1,000 ML IV PRN (22:47)
[2019-04-05] MEDS: HEPARIN SOD (PORCINE) 5,000 UNIT/ML 1 ML VIAL SUBCUT SCH ×2 (05:37→15:00)
[2019-04-05] MEDS: HUM INSULIN NPH/REG INSULIN HM 100 UNIT/1 ML 3 ML SUBCUT SCH (08:18)
[2019-04-05] MEDS: INSULIN LISPRO 100 UNIT/ML 3 ML VIAL SUBCUT SCH ×2 (08:18→11:39)
[2019-04-05] MEDS ORDERED: HUM INSULIN NPH/REG INSULIN HM 100 UNIT/1 ML 3 ML SUBCUT SCH (09:00)
[2019-04-05 09:46] LABS: ALBUMIN 3.2 g/dL (3.5-5.0); ALKALINE PHOSPHATASE 107 U/L (38-126); ANION GAP 10 (5-19); ASPARTATE AMINO TRANSFERASE 33 U/L (14-36); BILIRUBIN,DIRECT 0.1 mg/dL (0.0-0.4); BILIRUBIN,TOTAL 0.4 mg/dL (0.2-1.3); BLOOD UREA NITROGEN 5 mg/dL (7-20); CALCIUM 8.7 mg/dL (8.4-10.2); CARBON DIOXIDE 21 mmol/L (22-30); CHLORIDE 100 mmol/L (98-107); GLUCOSE 368 mg/dL (75-110); POTASSIUM 4.2 mmol/L (3.6-5.0); TOTAL PROTEIN 6.5 g/dL (6.3-8.2)
[2019-04-05 09:52] LABS: HEMATOCRIT 34.4 % (36.0-47.0); MEAN CORPUSCULAR VOLUME 85 fl (80-97); PLATELET COUNT 300 10^3/uL (150-450); RED BLOOD COUNT 4.06 10^6/uL (3.72-5.28); RED CELL DISTRIBUTION WIDTH 15.1 % (11.5-14.0); WHITE BLOOD COUNT 3.3 10^3/uL (4.0-10.5)
[2019-04-05] MEDS ORDERED: LISINOPRIL 5 MG TABLET PO SCH (10:00)
[2019-04-05] MEDS: DOCUSATE SODIUM 100 MG CAPSULE PO SCH (10:22)
[2019-04-05] MEDS: NICOTINE 21 MG/24 HR PATCH.TD24 TD SCH (10:23)
[2019-04-05] MEDS: NORMAL SALINE 1000 ML 1,000 ML IV PRN (10:23)
[2019-04-05] MEDS: CEFTRIAXONE 1 GM/D5W RTU 1 GM/50 ML RTUPB IV SCH (10:23)
[2019-04-05 10:51] LABS: HEMOGLOBIN 11.5 g/dL (12.0-15.5); MEAN CORPUSCULAR HEMOGLOBIN 28.3 pg (27.0-33.4); MEAN CORPUSCULAR HGB CONC 33.5 g/dL (32.0-36.0)
[2019-04-05 11:05] LABS: ABSOLUTE LYMPHOCYTES# (MANUAL) 0.8 10^3/uL (0.5-4.7); BAND NEUTROPHILS % (MANUAL) 1 % (3-5); BASOPHILS % (MANUAL) 0 % (0-2); EOSINOPHILS % (MANUAL) 4 % (0-6); LYMPHOCYTES % (MANUAL) 23 % (13-45); MONOCYTES % (MANUAL) 1 % (3-13); SEGMENTED NEUTROPHILS % (MAN) 71 % (42-78); TOTAL CELLS COUNTED 100
[2019-04-05 11:11] LABS: ANISOCYTOSIS SLIGHT; PLATELET CLUMPS PRESENT; TOXIC GRANULATION SLIGHT
[2019-04-05 11:12] LABS: PLATELET COMMENT ADEQUATE
[2019-04-05 16:23] VITALS: BP 107/54
--- NOTE | 2019-04-05 17:18 | PDOC DISCHARGE SUMMARY ---
Impression - Admit/DC Date/PCP Admission Date/Primary Care Provider: 04/02/19 20:19 Discharge Date: 04/05/19 - Discharge Diagnosis (1) DKA (diabetic ketoacidoses) Is this a current diagnosis for this admission?: Yes (2) HTN (hypertension) Is this a current diagnosis for this admission?: Yes - Additional Information Resuscitation Status: Full Code Discharge Diet: Diabetic Discharge Activity: Activity As Tolerated Referrals: JEAN-PIERRE SEWELL MD [ACTIVE STAFF] - (Appt request was put in the followup book) Prescriptions: Blood-Glucose Meter [Blood Glucose Meter] 1 each MC BID #1 each Blood Sugar Diagnostic [Blood Glucose Test] 1 each MC BID #60 strip Lancets [Blood Lancets] 1 each MC BID #60 each Ciprofloxacin HCl [Cipro 500 mg Tablet] 500 mg PO BID 4 Days #8 tablet Metformin HCl [Glucophage 500 mg Tablet] 500 mg PO BIDACBS #60 tab Hum Insulin NPH/Reg Insulin Hm [Insulin 70-30 (NPH/Reg) 100 unit/mL] 15 unit SUBCUT BIDACBS #1 vial Pen Needle, Diabetic [Insulin Pen Needle] 1 each MC BID #60 dis.needle Gabapentin [Neurontin 100 mg Capsule] 200 mg PO Q8HP PRN #30 capsule PRN Reason: Lisinopril [Prinivil 5 mg Tablet] 2.5 mg PO DAILY #30 tablet Home Medications: Blood Sugar Diagnostic [Blood Glucose Test] 1 each MC BID #60 strip 04/05/19 Blood-Glucose Meter [Blood Glucose Meter] 1 each MC BID #1 each 04/05/19 Ciprofloxacin HCl [Cipro 500 mg Tablet] 500 mg PO BID 4 Days #8 tablet 04/05/19 Gabapentin [Neurontin 100 mg Capsule] 200 mg PO Q8HP PRN #30 capsule 04/05/19 Hum Insulin NPH/Reg Insulin Hm [Insulin 70-30 (NPH/Reg) 100 unit/mL] 15 unit SUBCUT BIDACBS #1 vial 04/05/19 Lancets [Blood Lancets] 1 each MC BID #60 each 04/05/19 Lisinopril [Prinivil 5 mg Tablet] 2.5 mg PO DAILY #30 tablet 04/05/19 Metformin HCl [Glucophage 500 mg Tablet] 500 mg PO BIDACBS #60 tab 04/05/19 Pen Needle, Diabetic [Insulin Pen Needle] 1 each MC BID #60 dis.needle 04/05/19 History of Present Illiness History of Present Illness: Admitting hospitalist's H&P: DEVYN OBANDO is a 54 year old female with a past medical history of hypertension, diabetes, anxiety and tobacco dependence presents with 4 days of polyuria, polydipsia, fatigue and hyperglycemia. She is found to have metabolic acidosis, hyperkalemia, glucose over 700 with urine ketones, WBCs and blood. Patient is well-known to the hospital service for recurrent admissions secondary to noncompliance and DKA. She admits insulin noncompliance but she continues a 3-4 pack a day smoking habit. In the emergency room she receives IV insulin, normal saline and referred to the hospitalist for admission. Hospital Course Hospital Course: This is a 54-year-old female who was supposed to been on insulin regimen for her diabetes mellitus who was admitted for DKA. Patient was kept NPO and was started on IV fluids and insulin drip. She reports she has not been compliant to her insulin regimen due to insurance issues. She was restarted on insulin 70/30. Discharge planning verified she has coverage for her medications. Her regimen was titrated to which she had decent glycemic control. She was also started on lisinopril for elevated blood pressures. She did complain of mild abdominal discomfort and was also treated for urinary tract infection. She complains of chronic pins and needles sensation on her hands and feet and will be prescribed Neurontin for a likely diabetic neuropathy. Physical Exam Vital Signs: Temp Pulse Resp BP Pulse Ox 97.9 F 90 18 107/54 L 97 04/05/19 16:21 04/05/19 16:21 04/05/19 16:21 04/05/19 16:21 04/05/19 16:21 Intake & Output 04/04/19 04/05/19 04/06/19 06:59 06:59 06:59 Intake Total 4464 854 1570 Output Total 2200 1500 Balance 2264 -646 1570 Weight 166 lb 0.129 oz 166 lb 3.657 oz General appearance: PRESENT: no acute distress, well-developed, well-nourished Head exam: PRESENT: atraumatic, normocephalic Eye exam: PRESENT: conjunctiva pink, EOMI, PERRLA. ABSENT: scleral icterus Ear exam: PRESENT: normal external ear exam Mouth exam: PRESENT: moist, tongue midline Neck exam: ABSENT: carotid bruit, JVD, lymphadenopathy, thyromegaly Respiratory exam: PRESENT: clear to auscultation catrachita. ABSENT: rales, rhonchi, wheezes Cardiovascular exam: PRESENT: RRR. ABSENT: diastolic murmur, rubs, systolic murmur Pulses: PRESENT: normal dorsalis pedis pul Vascular exam: PRESENT: normal capillary refill GI/Abdominal exam: PRESENT: normal bowel sounds, soft. ABSENT: distended, guarding, mass, organolmegaly, rebound, tenderness Rectal exam: PRESENT: deferred Extremities exam: PRESENT: full ROM. ABSENT: calf tenderness, clubbing, pedal edema Neurological exam: PRESENT: alert, awake, oriented to person, oriented to place, oriented to time, oriented to situation, CN II-XII grossly intact. ABSENT: motor sensory deficit Results Laboratory Results: WBC 3.3 10^3/uL (4.0-10.5) L 04/05/19 09:24 RBC 4.06 10^6/uL (3.72-5.28) 04/05/19 09:24 Hgb 11.5 g/dL (12.0-15.5) L 04/05/19 09:24 Hct 34.4 % (36.0-47.0) L 04/05/19 09:24 MCV 85 fl (80-97) 04/05/19 09:24 MCH 28.3 pg (27.0-33.4) 04/05/19 09:24 MCHC 33.5 g/dL (32.0-36.0) 04/05/19 09:24 RDW 15.1 % (11.5-14.0) H 04/05/19 09:24 Plt Count 300 10^3/uL (150-450) 04/05/19 09:24 Lymph % (Auto) Not Reportable 04/05/19 09:24 Hart % (Auto) Not Reportable 04/05/19 09:24 Eos % (Auto) Not Reportable 04/05/19 09:24 Baso % (Auto) Not Reportable 04/05/19 09:24 Absolute Neuts (auto) Not Reportable 04/05/19 09:24 Absolute Lymphs (auto) Not Reportable 04/05/19 09:24 Absolute Monos (auto) Not Reportable 04/05/19 09:24 Absolute Eos (auto) Not Reportable 04/05/19 09:24 Absolute Basos (auto) Not Reportable 04/05/19 09:24 Total Counted 100 04/05/19 09:24 Seg Neutrophils % Not Reportable 04/05/19 09:24 Seg Neuts % (Manual) 71 % (42-78) 04/05/19 09:24 Band Neutrophils % 1 % (3-5) L 04/05/19 09:24 Lymphocytes % (Manual) 23 % (13-45) 04/05/19 09:24 Monocytes % (Manual) 1 % (3-13) L 04/05/19 09:24 Eosinophils % (Manual) 4 % (0-6) 04/05/19 09:24 Basophils % (Manual) 0 % (0-2) 04/05/19 09:24 Abs Neuts (Manual) 2.4 10^3/uL (1.7-8.2) 04/05/19 09:24 Abs Lymphs (Manual) 0.8 10^3/uL (0.5-4.7) 04/05/19 09:24 Abs Monocytes (Manual) 0.0 10^3/uL (0.1-1.4) L 04/05/19 09:24 Absolute Eos (Manual) 0.1 10^3/uL (0.0-0.6) 04/05/19 09:24 Abs Basophils (Manual) 0.0 10^3/uL (0.0-0.2) 04/05/19 09:24 Toxic Granulation SLIGHT 04/05/19 09:24 Clumped Platelets PRESENT 04/05/19 09:24 Platelet Comment ADEQUATE 04/05/19 09:24 Anisocytosis SLIGHT 04/05/19 09:24 VBG pH 7.38 (7.30-7.42) 04/02/19 18:21 VBG pCO2 40.5 mmHg (35-63) 04/02/19 18:21 VBG HCO3 23.3 mmol/L (20-32) 04/02/19 18:21 VBG Base Excess -1.7 mmol/L 04/02/19 18:21 Sodium 131.1 mmol/L (137-145) L 04/05/19 09:24 Potassium 4.2 mmol/L (3.6-5.0) 04/05/19 09:24 Chloride 100 mmol/L (98-107) 04/05/19 09:24 Carbon Dioxide 21 mmol/L (22-30) L 04/05/19 09:24 Anion Gap 10 (5-19) 04/05/19 09:24 BUN 5 mg/dL (7-20) L 04/05/19 09:24 Creatinine 0.45 mg/dL (0.52-1.25) L 04/05/19 09:24 Est GFR ( Amer) > 60 (>60) 04/05/19 09:24 Est GFR (MDRD) Non-Af > 60 (>60) 04/05/19 09:24 Glucose 368 mg/dL (75-110) H 04/05/19 09:24 POC Glucose 226 mg/dL (70-110) H 04/05/19 16:02 Hemoglobin A1c % 13.4 % (4.7-6.0) H 04/03/19 05:25 Lactic Acid 1.6 mmol/L (0.7-2.1) 04/05/19 09:24 Calcium 8.7 mg/dL (8.4-10.2) 04/05/19 09:24 Phosphorus 3.4 mg/dL (2.5-4.5) 04/02/19 21:00 Magnesium 1.3 mg/dL (1.6-2.3) L 04/02/19 21:00 Total Bilirubin 0.4 mg/dL (0.2-1.3) 04/05/19 09:24 Direct Bilirubin 0.1 mg/dL (0.0-0.4) 04/05/19 09:24 Neonat Total Bilirubin Not Reportable 04/05/19 09:24 Neonat Direct Bilirubin Not Reportable 04/05/19 09:24 Neonat Indirect Bili Not Reportable 04/05/19 09:24 AST 33 U/L (14-36) 04/05/19 09:24 ALT 34 U/L (<35) 04/05/19 09:24 Alkaline Phosphatase 107 U/L (38-126) 04/05/19 09:24 Creatine Kinase 35 U/L (30-135) 04/03/19 09:33 CK-MB (CK-2) 0.74 ng/mL (<4.55) 04/03/19 09:33 Troponin I < 0.012 ng/mL 04/03/19 09:33 Total Protein 6.5 g/dL (6.3-8.2) 04/05/19 09:24 Albumin 3.2 g/dL (3.5-5.0) L 04/05/19 09:24 Urine Color PINK 04/02/19 18:21 Urine Appearance TURBID 04/02/19 18:21 Urine pH 6.0 (5.0-9.0) 04/02/19 18:21 Ur Specific [place] 1.027 04/02/19 18:21 Urine Protein 30 mg/dL (NEGATIVE) H 04/02/19 18:21 Urine Glucose (UA) >=500 mg/dL (NEGATIVE) H 04/02/19 18:21 Urine Ketones TRACE mg/dL (NEGATIVE) H 04/02/19 18:21 Urine Blood LARGE (NEGATIVE) H 04/02/19 18:21 Urine Nitrite NEGATIVE (NEGATIVE) 04/02/19 18:21 Urine Bilirubin NEGATIVE (NEGATIVE) 04/02/19 18:21 Urine Urobilinogen NEGATIVE mg/dL (<2.0) 04/02/19 18:21 Ur Leukocyte Esterase NEGATIVE (NEGATIVE) 04/02/19 18:21 Urine WBC (Auto) 53 /HPF 04/02/19 18:21 Urine RBC (Auto) >182 /HPF 04/02/19 18:21 Urine Ascorbic Acid NEGATIVE (NEGATIVE) 04/02/19 18:21 Urine Opiates Screen NEGATIVE 04/02/19 23:19 Urine Methadone Screen NEGATIVE 04/02/19 23:19 Ur Barbiturates Screen NEGATIVE 04/02/19 23:19 Ur Phencyclidine Scrn NEGATIVE 04/02/19 23:19 Ur Amphetamines Screen NEGATIVE 04/02/19 23:19 U Benzodiazepines Scrn NEGATIVE 04/02/19 23:19 Urine Cocaine Screen NEGATIVE 04/02/19 23:19 U Marijuana (THC) Screen NEGATIVE 04/02/19 23:19 04/02/19 04/02/19 04/03/19 18:21 21:00 02:51 CK-MB (CK-2) 0.82 0.73 Troponin I < 0.012 < 0.012 < 0.012 04/03/19 09:33 CK-MB (CK-2) 0.74 Troponin I < 0.012 Impressions: Chest X-Ray 04/02/19 18:39 IMPRESSION: NO ACUTE RADIOGRAPHIC FINDING IN THE CHEST. Renal Ultrasound 04/04/19 18:18 IMPRESSION: No acute renal findings. Stroke Is this a Stroke Patient?: No Acute Heart Failure - Is this a Heart Failure Patient?: No
== END 2019-04-05 16:58 | disposition home or self-care (01) | DRG 639 ==
LOC: ER 17:59 → EH 20:19 → 3N 04-03 02:12
PROVIDERS: ADMIT Internal Medicine; ATTEND Internal Medicine
DX: E11.10 Type 2 diabetes mellitus with ketoacidosis without coma (principal); I10 Essential (primary) hypertension; T38.3X6A Underdosing of insulin and oral hypoglycemic [antidiabetic] drugs, initial encounter; Z79.4 Long term (current) use of insulin; E87.5 Hyperkalemia; J44.9 Chronic obstructive pulmonary disease, unspecified; F41.9 Anxiety disorder, unspecified; F31.9 Bipolar disorder, unspecified; F17.210 Nicotine dependence, cigarettes, uncomplicated; F90.9 Attention-deficit hyperactivity disorder, unspecified type; Z91.120 Patient's intentional underdosing of medication regimen due to financial hardship; Z83.3 Family history of diabetes mellitus; Z82.3 Family history of stroke; Z82.49 Family history of ischemic heart disease and other diseases of the circulatory system; Z87.820 Personal history of traumatic brain injury; Z79.899 Other long term (current) drug therapy
CPT/HCPCS: 36415; 71045; 76770; 80048; 80053; 80307; 81001; 82550; 82553; 82803; 82962; 83036; 83605; 83735; 84100; 84484; 85025; 87086; 93005; 93010; 96360; 99285; J0696; J1644; J1815; J1885; J3475; J3480; J7030; J7050

== ENCOUNTER 2019-07-11 10:48 | Emergency (ER) | payer MEDICARE, MEDICAID ==
[2019-07-11 10:57] VITALS: BP 122/69
--- NOTE | 2019-07-11 11:35 | ER Document Report ---
ED Medical Screen (RME) - General Chief Complaint: Abnormal Lab Results Stated Complaint: ABNORMAL LABS Time Seen by Provider: 07/11/19 11:30 TRAVEL OUTSIDE OF THE [place] IN LAST 30 DAYS: No - HPI Notes: 07/11/19 11:32 Patient is a 54-year-old female history of type 2 diabetes who presents progress her doctor for having glucose in the 600s. Patient states that she does have some excessive thirst and feels tired, but no other concerns or complaints. She is able to eat and drink without difficulty. She is urinating normally and having normal bowel movements. No fever, chest pain, shortness of breath, abdominal pain, vomiting/diarrhea. I have treated and performed a rapid initial assessment of this patient. A comprehensive ED assessment and evaluation of the patient, analysis of test results and completion of medical decision making process will be conducted by additional ED providers. PHYSICAL EXAMINATION: GENERAL: Well-appearing, well-nourished and in no acute distress. A&Ox4. Answers questions appropriately. - Related Data Allergies/Adverse Reactions: No Known Allergies Allergy (Verified 05/12/17 14:52) Past Medical History - Past Medical History Cardiac Medical History: Reports: Hx Hypertension Pulmonary Medical History: Reports: Hx COPD Endocrine Medical History: Reports: Hx Diabetes Mellitus Type 2 - When overweight Renal/ Medical History: Denies: Hx Peritoneal Dialysis Psychiatric Medical History: Reports: Hx Anxiety, Hx Attention Deficit Hyperactivity Disorder, Hx Bipolar Disorder Traumatic Medical History: Reports: Hx Traumatic Brain Injury Past Surgical History: Reports: Hx Breast Surgery - benign lumpectomy, Hx Section - x3, Hx Hysterectomy - Immunizations Hx Diphtheria, Pertussis, Tetanus Vaccination: Yes Physical Exam - Vital signs Vitals: Temp Pulse Resp BP Pulse Ox 97.9 F 113 H 18 122/69 98 07/11/19 10:55 07/11/19 10:55 07/11/19 10:55 07/11/19 10:55 07/11/19 10:55 Course - Vital Signs Vital signs: Temp Pulse Resp BP Pulse Ox 97.9 F 113 H 18 122/69 98 07/11/19 10:55 07/11/19 10:55 07/11/19 10:55 07/11/19 10:55 07/11/19 10:55
[2019-07-11] MEDS: NORMAL SALINE 1000 ML 1,000 ML IV PRN ×2 (12:19→12:57)
[2019-07-11 12:36] LABS: VENOUS BLOOD BASE EXCESS -2.8 mmol/L; VENOUS BLOOD HCO3 22.5 mmol/L (20-32); VENOUS BLOOD PCO2 41.1 mmHg (35-63); VENOUS BLOOD PH 7.36 (7.30-7.42)
[2019-07-11 12:37] LABS: HEMATOCRIT 42.2 % (36.0-47.0); HEMOGLOBIN 14.7 g/dL (12.0-15.5); MEAN CORPUSCULAR HEMOGLOBIN 30.8 pg (27.0-33.4); MEAN CORPUSCULAR HGB CONC 34.8 g/dL (32.0-36.0); MEAN CORPUSCULAR VOLUME 88 fl (80-97); PLATELET COUNT 286 10^3/uL (150-450); RED BLOOD COUNT 4.78 10^6/uL (3.72-5.28); RED CELL DISTRIBUTION WIDTH 14.7 % (11.5-14.0); WHITE BLOOD COUNT 5.6 10^3/uL (4.0-10.5)
[2019-07-11 12:38] LABS: APPEARANCE,URINE CLEAR; BILIRUBIN,URINE NEGATIVE (NEGATIVE); COLOR,URINE COLORLESS; GLUCOSE, URINE >=500 mg/dL (NEGATIVE); KETONES,URINE NEGATIVE (NEGATIVE); PROTEIN,URINE NEGATIVE (NEGATIVE); URINE SPECIFIC GRAVITY 1.027; UROBILINOGEN,URINE NEGATIVE mg/dL (<2.0)
[2019-07-11 12:54] LABS: ALBUMIN 4.3 g/dL (3.5-5.0); ALKALINE PHOSPHATASE 175 U/L (38-126); ANION GAP 16 (5-19); ASPARTATE AMINO TRANSFERASE 31 U/L (14-36); BILIRUBIN,DIRECT 0.4 mg/dL (0.0-0.4); BILIRUBIN,TOTAL 0.4 mg/dL (0.2-1.3); BLOOD UREA NITROGEN 8 mg/dL (7-20); CALCIUM 9.9 mg/dL (8.4-10.2); CARBON DIOXIDE 24 mmol/L (22-30); CHLORIDE 86 mmol/L (98-107); POTASSIUM 4.6 mmol/L (3.6-5.0); TOTAL PROTEIN 7.8 g/dL (6.3-8.2)
[2019-07-11 12:58] LABS: ABSOLUTE LYMPHOCYTES# (MANUAL) 1.3 10^3/uL (0.5-4.7); ABSOLUTE MONOCYTES # (MANUAL) 0.2 10^3/uL (0.1-1.4); BASOPHILS % (MANUAL) 1 % (0-2); EOSINOPHILS % (MANUAL) 3 % (0-6); LYMPHOCYTES % (MANUAL) 23 % (13-45); MONOCYTES % (MANUAL) 3 % (3-13); SEGMENTED NEUTROPHILS % (MAN) 70 % (42-78); TOTAL CELLS COUNTED 100
[2019-07-11 12:59] LABS: ANISOCYTOSIS SLIGHT; PLATELET COMMENT ADEQUATE
[2019-07-11 13:19] LABS: GLUCOSE 722 mg/dL (75-110)
[2019-07-11] MEDS ORDERED: INSULIN REG, HUMAN 100 UNIT/ML 3 ML VIAL (PYX) IV ONE (14:48)
== END 2019-07-11 15:25 | disposition left against medical advice (07) ==
LOC: ER 10:48
DX: E11.9 Type 2 diabetes mellitus without complications (principal); R63.1 Polydipsia; R53.83 Other fatigue; I10 Essential (primary) hypertension; J44.9 Chronic obstructive pulmonary disease, unspecified; Z53.20 Procedure and treatment not carried out because of patient's decision for unspecified reasons
CPT/HCPCS: 99281; 96360; 36415; 82962; 85025; 80053; 81001; 82803; J7030

== ENCOUNTER → 2019-07-23 | Outpatient (CLI) | payer MEDICAID, MEDICARE ==
--- NOTE | 2019-07-23 09:04 | WOMENS IMAGING REPORT ---
EXAM DESCRIPTION: U/S ABDOMEN TOTAL COMPLETED DATE/TIME: 07/23/2019 8:22 am REASON FOR STUDY: R10.11 RIGHT UPPER QUADRANT ABDOMINAL PAIN Z12.31 ENCNTR SCREEN MAMMOGRAM FOR MAL IGNANT NEOPLASM OF VINICIUS R10.11 RIGHT UPPER QUADRANT PAIN COMPARISON: None. TECHNIQUE: Dynamic and static grayscale images acquired of the abdomen and recorded on PACS. Additio nal selected color Doppler and spectral images recorded. Note: Study does not meet criteria for complete doppler/duplex scan LIMITATIONS: None. FINDINGS: PANCREAS: The head and body of the pancreas are of normal echogenicity. The tail is obsc ured by overlying bowel gas. LIVER: Fatty liver. The liver measures 17.3 cm in length, at the upper limits of normal size. LIVER VASCULATURE: Normal directional flow of the main portal vein and hepatic veins. GALLBLADDER: Gallstones. The gallbladder wall measures 2.4 mm, normal wall thickness. No pericholec ystic fluid. ULTRASOUND-DETECTED PATEL'S SIGN: Negative. INTRAHEPATIC DUCTS AND COMMON DUCT: CBD measures 5.0 mm in diameter normal. The intrahepatic ducts n ormal caliber. No filling defects. INFERIOR VENA CAVA: Normal flow. AORTA: The proximal segment is patent. The mid and distal segments are obscured by overlying bowel gas. RIGHT KIDNEY: The right kidney measures 11.7 x 4.9 x 4.9 cm, normal size. Normal echogenicity. N o solid or suspicious masses. No hydronephrosis. No calcifications. LEFT KIDNEY: The left kidney measures 12.8 x 6.0 x 5.3 cm, normal size. Normal echogenicity. No solid or suspicious masses. No hydronephrosis. No calcifications. SPLEEN: The spleen measures 11.1 cm in length, normal size. No solid masses. PERITONEAL AND PLEURAL SPACES: No ascites or effusions. OTHER: No other significant finding. IMPRESSION: 1. Gallstones. 2. No evidence of biliary obstruction. 3. Fatty liver. 4. The tail of the pancreas and the abdominal aorta are obscured by overlying bowel gas. TECHNICAL DOCUMENTATION: JOB ID: [id number] [employer]- All Rights Reserved Reading location - IP/workstation name: [email or web address]
--- NOTE | 2019-07-23 09:31 | WOMENS IMAGING REPORT ---
EXAM DESCRIPTION: 3D SCREENING MAMMO BILAT COMPLETED DATE/TIME: 07/23/2019 9:03 am REASON FOR STUDY: Z12.31 SCREENING MAMMO Z12.31 ENCNTR SCREEN MAMMOGRAM FOR MALIGNANT NEOPLASM OF B RE R10.11 RIGHT UPPER QUADRANT PAIN COMPARISON: None. EXAM PARAMETERS: Views: Standard craniocaudal and mediolateral oblique views of each breast recorded using digital acquisition and breast tomosynthesis. Read with the assistance of CAD. .[facility] - R2 [employer] Manager Version 9.2 LIMITATIONS: None. FINDINGS: No suspicious masses, suspicious calcifications or architectural distortion. No areas of c oncern. IMPRESSION: NEGATIVE MAMMOGRAM. BIRADS 1. BREAST DENSITY: b. There are scattered areas of fibroglandular density. BIRAD: ASSESSMENT: 1 NEGATIVE RECOMMENDATION: ROUTINE SCREENING COMMENT: The patient has been notified of the results by letter per MQSA requirements. Additional no tification policies are in place for contacting patient with suspicious or incomplete findings. Quality ID #[id number]: The [employer] recommends an annual screening mammogram for women aged 40 years or over. This facility utilizes a reminder system to ensure that all patients receive reminder letters, and/or direct phone calls for appointments. This includes reminders for routine scr eening mammograms, diagnostic mammograms, or other Breast Imaging Interventions when appropriate. Th is patient will be placed in the appropriate reminder system. TECHNICAL DOCUMENTATION: FINDING NUMBER: (1) ASSESSMENT: (1) JOB ID: [id number] [employer]- All Rights Reserved Reading location - IP/workstation name: [email or web address]
== END ==
LOC: WI 07:35
PROVIDERS: ATTEND Physician Assistant
DX: Z12.31 Encounter for screening mammogram for malignant neoplasm of breast (principal); R10.11 Right upper quadrant pain; K80.80 Other cholelithiasis without obstruction
CPT/HCPCS: 76700; 77063; 77067

== ENCOUNTER → 2020-01-12 | Outpatient (CLI) | payer MEDICARE, MEDICAID ==
--- NOTE | 2020-01-12 14:18 | RADIOLOGY REPORT (SQ) ---
EXAM DESCRIPTION: CHEST PA/LATERAL IMAGES COMPLETED DATE/TIME: 01/12/2020 11:27 am REASON FOR STUDY: SHORTNESS OF BREATH COMPARISON: 04/02/2019 EXAM PARAMETERS: NUMBER OF VIEWS: two views TECHNIQUE: Digital Frontal and Lateral radiographic views of the chest acquired. RADIATION DOSE: NA LIMITATIONS: none FINDINGS: LUNGS AND PLEURA: No opacities, masses or pneumothorax. No pleural effusion. MEDIASTINUM AND HILAR STRUCTURES: No masses or contour abnormalities. HEART AND VASCULAR STRUCTURES: Heart normal size. No evidence for failure. BONES: No acute findings. HARDWARE: None in the chest. OTHER: No other significant finding. IMPRESSION: NO SIGNIFICANT RADIOGRAPHIC FINDING IN THE CHEST. TECHNICAL DOCUMENTATION: JOB ID: [id number] [employer]- All Rights Reserved Reading location - IP/workstation name: [email or web address]
== END ==
LOC: OD 11:12
PROVIDERS: ATTEND Physician Assistant
DX: R06.02 Shortness of breath (principal)
CPT/HCPCS: 71046

== ENCOUNTER → 2020-01-25 | Outpatient (CLI) | payer MEDICARE, MEDICAID ==
[2020-01-25 10:31] LABS: ALBUMIN 4.2 g/dL (3.5-5.0); ALKALINE PHOSPHATASE 126 U/L (38-126); ASPARTATE AMINO TRANSFERASE 17 U/L (14-36); BILIRUBIN,TOTAL 0.3 mg/dL (0.2-1.3); TOTAL PROTEIN 7.1 g/dL (6.3-8.2)
== END ==
LOC: OD 09:35
PROVIDERS: ATTEND Surgery
DX: K80.20 Calculus of gallbladder without cholecystitis without obstruction (principal)
CPT/HCPCS: 36415; 80076